=== PATIENT | male | born 1995 | race Caucasian/White ===

== ENCOUNTER 2017-10-24 18:54 | Inpatient (IN) | payer SELFPAY ==
[2017-10-24] MEDS ORDERED: IPRATROPIUM/ALBUTEROL 0.5-2.5 MG/3 ML AMPUL NEB ONE ×2 (19:25→19:26)
[2017-10-24] MEDS ORDERED: NORMAL SALINE 1000 ML 1,000 ML IV ONE (19:25)
[2017-10-24] MEDS ORDERED: MAGNESIUM SULFATE/D5W 1 GM/100 ML RTUPB IV PRN (19:25)
--- NOTE | 2017-10-24 19:30 | ER Document Report ---
ED Respiratory Problem - General Chief Complaint: Shortness Of Breath Stated Complaint: BREATHING DIFFICULTY Time Seen by Provider: 10/24/17 19:18 Notes: Patient is a 22 year old male that comes to the ED for chief complaint of difficulty breathing. He comes by EMS, was given albuterol and Solu-Medrol and route, states he does feel improved since that time. Initial oxygen saturation was 82% on room air, he smokes cigarettes and marijuana, he has a history of asthma, has no meds at home. He denies history of hospitalization or intubation. He states he has been sick for almost 1 week, has had coughing including yellow and green sputum production and felt feverish. He has not had the influenza vaccine. TRAVEL OUTSIDE OF THE [place] IN LAST 30 DAYS: No - Related Data Allergies/Adverse Reactions: No Known Allergies Allergy (Unverified 10/24/17 19:17) Past Medical History - General Information source: Patient - Social History Smoking Status: Current Every Day Smoker Smoking Education Provided: Yes - <3 min Frequency of alcohol use: None Drug Abuse: Marijuana Lives with: Spouse/Significant other Family History: Reviewed & Not Pertinent Patient has suicidal ideation: No Patient has homicidal ideation: No Pulmonary Medical History: Reports: Hx Asthma Renal/ Medical History: Denies: Hx Peritoneal Dialysis Surgical Hx: Negative - Immunizations Hx Diphtheria, Pertussis, Tetanus Vaccination: Yes Review of Systems - Review of Systems Constitutional: See HPI EENT: No symptoms reported Cardiovascular: No symptoms reported Respiratory: See HPI Gastrointestinal: No symptoms reported Genitourinary: No symptoms reported Male Genitourinary: No symptoms reported Musculoskeletal: No symptoms reported Skin: No symptoms reported Hematologic/Lymphatic: No symptoms reported Neurological/Psychological: No symptoms reported Physical Exam - Vital signs Vitals: Pulse Ox 82 L 10/24/17 19:04 Interpretation: Normal - General General appearance: Alert In distress: Mild - HEENT Head: Normocephalic, Atraumatic Eyes: Normal Pupils: PERRL - Respiratory Respiratory status: Respiratory distress - mild, Tachypnea Chest status: Nontender Breath sounds: Decreased air movement, Nonproductive cough, Wheezing. No: Rales , Rhonchi, Stridor Chest palpation: Normal - Cardiovascular Rhythm: Regular, Tachycardia Heart sounds: Normal auscultation, S1 appreciated, S2 appreciated Murmur: No Normal capillary refill: Yes - Abdominal Inspection: Normal Distension: No distension Bowel sounds: Normal Tenderness: Nontender Organomegaly: No organomegaly - Back Back: Normal, Nontender - Extremities General upper extremity: Normal inspection, Nontender, Normal color, Normal ROM , Normal temperature General lower extremity: Normal inspection, Nontender, Normal color, Normal ROM , Normal temperature, Normal weight bearing. No: Melissa's sign - Neurological Neuro grossly intact: Yes Cognition: Normal Orientation: AAOx4 [place] Coma Scale Eye Opening: Spontaneous [place] Coma Scale Verbal: Oriented [place] Coma Scale Motor: Obeys Commands [place] Coma Scale Total: 15 Speech: Normal Motor strength normal: LUE, RUE, LLE, RLE Sensory: Normal - Psychological Associated symptoms: Normal affect, Normal mood - Skin Skin Temperature: Warm Skin Moisture: Dry Skin Color: Normal Course - Re-evaluation Re-evalutation: On my initial evaluation patient has tachypnea, tachycardia, expiratory wheezes , decreased breath sounds, however he can speak in several word sentences without gasping, he is not retracting or in severe distress. Oxygen saturation 91% on 3 L nasal cannula. On reevaluation patient with improvement of lung sounds but his oxygenation has now worsened to 88% on 3 L nasal cannula. Placed on BiPAP. Giving antibiotics due to productive cough. Chest x-ray unremarkable, CBC shows leukocytosis which is nonspecific, influenza negative, remaining workup nonspecific. Venous blood gas unremarkable. On reevaluation patient much improved, oxygenating well, no respiratory distress , states he feels much better. Will discuss with hospitalist for admission to the hospital. - Vital Signs Vital signs: Temp Pulse Resp BP Pulse Ox 97.4 F 84 19 117/60 95 10/25/17 03:48 10/25/17 03:48 10/25/17 03:59 10/25/17 03:48 10/25/17 03:59 - Laboratory Result Diagrams: 10/24/17 19:41 10/24/17 19:41 Laboratory results interpreted by me: 10/24/17 10/24/17 19:41 19:41 WBC 14.0 H RBC 5.65 H Hgb 17.1 H Lymphocytes % 6.5 L Eosinophils % 10.9 H Absolute Neutrophils 10.9 H Absolute Eosinophils 1.5 H BUN 6 L Direct Bilirubin 0.5 H Critical Care Note - Critical Care Note Total time excluding time spent on procedures (mins): 35 - Respiratory distress , asthma exacerbation, hypoxia Comments: Please allow 35 minutes of critical care time for evaluation and management of patient with asthma exacerbation, respiratory distress, hypoxia. Multiple re- evaluations, treatment with DuoNeb's, magnesium, BiPAP. Interpretation of laboratory data. Discussed with family member. Consultation and admission to the hospital. Discharge - Discharge Clinical Impression: Hypoxia, Productive cough, Tobacco abuse Asthma exacerbation Qualifiers: Asthma severity: severe Asthma persistence: unspecified Qualified Code(s): J45.901 - Unspecified asthma with (acute) exacerbation Condition: Stable Disposition: ADMITTED INPATIENT Admitting Provider: Hospitalist Unit Admitted: Telemetry
[2017-10-24 20:08] LABS: VENOUS BLOOD BASE EXCESS -1.3 mmol/L; VENOUS BLOOD HCO3 24.2 mmol/L (20-32); VENOUS BLOOD PCO2 43.2 mmHg (35-63); VENOUS BLOOD PH 7.37 (7.30-7.42)
[2017-10-24 20:11] LABS: ABSOLUTE BASOPHILS # (AUTO) 0.1 10^3/uL (0.0-0.2); ABSOLUTE EOSINOPHILS # (AUTO) 1.5 10^3/uL (0.0-0.6); ABSOLUTE LYMPHOCYTES (AUTO) 0.9 10^3/uL (0.5-4.7); ABSOLUTE MONOCYTES (AUTO) 0.6 10^3/uL (0.1-1.4); ABSOLUTE NEUT (AUTO) 10.9 10^3/uL (1.7-8.2); BASOPHILS % (AUTO) 0.7 % (0-2); EOSINOPHILS % (AUTO) 10.9 % (0-6); HEMOGLOBIN 17.1 g/dL (13.5-17.0); LYMPHOCYTES % (AUTO) 6.5 % (13-45); MEAN CORPUSCULAR HEMOGLOBIN 30.3 pg (27.0-33.4); MEAN CORPUSCULAR HGB CONC 34.3 g/dL (32.0-36.0); MEAN CORPUSCULAR VOLUME 89 fl (80-97); MONOCYTES % (AUTO) 4.5 % (3-13); PLATELET COUNT 234 10^3/uL (150-450); RED BLOOD COUNT 5.65 10^6/uL (4.35-5.55); RED CELL DISTRIBUTION WIDTH 13.8 % (11.5-14.0); SEGMENTED NEUTROPHILS % (AUTO) 77.4 % (42-78); TOTAL CELLS COUNTED % (AUTO) 100 %
[2017-10-24 20:23] LABS: ALANINE AMINOTRANSFERASE 33 U/L (21-72); ALBUMIN 4.3 g/dL (3.5-5.0); ALKALINE PHOSPHATASE 89 U/L (38-126); ANION GAP 17 (5-19); ASPARTATE AMINO TRANSFERASE 20 U/L (17-59); BILIRUBIN,DIRECT 0.5 mg/dL (0.0-0.4); BILIRUBIN,TOTAL 0.7 mg/dL (0.2-1.3); BLOOD UREA NITROGEN 6 mg/dL (7-20); CALCIUM 9.6 mg/dL (8.4-10.2); CARBON DIOXIDE 22 mmol/L (22-30); CHLORIDE 101 mmol/L (98-107); GLUCOSE 92 mg/dL (75-110); POTASSIUM 4.2 mmol/L (3.6-5.0); SODIUM 139.9 mmol/L (137-145)
--- NOTE | 2017-10-24 20:32 | RADIOLOGY REPORT (SQ) ---
EXAM DESCRIPTION: CHEST SINGLE VIEW COMPLETED DATE/TIME: 10/24/2017 8:02 pm REASON FOR STUDY: shortness of breath, hypoxia COMPARISON: None. EXAM PARAMETERS: NUMBER OF VIEWS: One view. TECHNIQUE: Single frontal radiographic view of the chest acquired. RADIATION DOSE: NA LIMITATIONS: None. FINDINGS: LUNGS AND PLEURA: No opacities, masses or pneumothorax. No pleural effusion. MEDIASTINUM AND HILAR STRUCTURES: No masses. Contour normal. HEART AND VASCULAR STRUCTURES: Heart normal in size. Normal vasculature. BONES: No acute findings. HARDWARE: None in the chest. OTHER: No other significant finding. IMPRESSION: NO ACUTE RADIOGRAPHIC FINDING IN THE CHEST. TECHNICAL DOCUMENTATION: JOB ID: [id number] [place]-72 2010 [employer]- All Rights Reserved Reading location - IP/workstation name: [facility]
[2017-10-24 20:45] LABS: A TYPE INFLUENZA AG NEGATIVE (NEGATIVE); B INFLUENZA AG NEGATIVE (NEGATIVE)
[2017-10-24] MEDS ORDERED: CEFTRIAXONE INJ 1000 MG VIAL IV ONE (21:04)
[2017-10-24] MEDS ORDERED: AZITHROMYCIN INJ 500 MG VIAL IV ONE ×2 (21:04→22:30)
[2017-10-24] MEDS ORDERED: PROMETHAZINE HCL INJ 25 MG/1 ML VIAL IV PRN (21:54)
[2017-10-24] MEDS ORDERED: ALBUTEROL SULFATE 0.083% NEB 2.5 MG/3 ML AMPUL NEB PRN (21:54)
[2017-10-24] MEDS ORDERED: ACETAMINOPHEN 325 MG TABLET PO PRN (21:54)
[2017-10-24] MEDS ORDERED: DOCUSATE SODIUM 100 MG CAPSULE PO PRN (21:54)
[2017-10-24] MEDS: METHYLPREDNISOLONE INJ 40 MG/1 ML SDV IV SCH (22:58)
[2017-10-24] MEDS ORDERED: NICOTINE 14 MG/24 HR PATCH.TD24 TD SCH (23:15)
--- NOTE | 2017-10-24 23:23 | PDOC H&P ---
History of Present Illness Admission Date/PCP: 10/24/17 21:47 Patient complains of: Worsening shortness of breath and wheezing for the last 2 days. History of Present Illness: FRANDY HANSEN is a 22 year old male smoker with history of severe asthma was admitted with above-mentioned complaints. The patient denies any fever or chills but complains of cough productive of yellowish/greenish sputum. He denies any sick contacts or recent travels. He apparently uses his rescue inhaler at least twice a day but he has been use it more frequently lately. He ran out of his inhaler about 5-6 days ago. He also used to use Symbicort which he ran out of about a month ago. He was not able to get refills for financial reasons. He said that the humidity exacerbate his symptoms. He is also a smoker, 6 cigarettes a day for the last 3 years. He denied any chest pain but he said that he felt nauseous and vomited once. The vomitus was bilious nonbloody. He denied any urinary symptoms or focal deficits. In the ED, his temperature was 98.4, heart rate 117, respiratory rate 21, blood pressure 122/80 with oxygen saturation of 82% on room air. His WBC was 14.0 and his hemoglobin was 17.1. His pH was 7.37 with PCO2 of 43.2. His influenza screen was negative. Chest x-ray was done which was negative for any acute findings. He received 2 DuoNebs, Rocephin and Zithromax in addition to 1 g of magnesium sulfate 1. Past Medical History Pulmonary Medical History: Reports: Asthma - severe. Past Surgical History Past Surgical History: Reports: None Social History Smoking Status: Current Every Day Smoker Cigarettes Packs Per Day: 6 - Cigarettes a day for the last 3 years Frequency of Alcohol Use: None Hx Recreational Drug Use: Yes - Once a month for the last 2 years. The last time was yesterday Drugs: Marijuana Family History Parental Family History Reviewed: Yes - Father: Heart disease, mother: Heart disease. Children Family History Reviewed: No Sibling(s) Family History Reviewed.: Yes Medication/Allergy Allergies/Adverse Reactions: No Known Allergies Allergy (Unverified 10/24/17 19:17) Review of Systems ROS unobtainable: Other - Pertinent positives and negatives as per HPI. Physical Exam Vital Signs: Temp Pulse Resp BP Pulse Ox 98.4 F 117 H 21 H 122/80 95 10/24/17 19:10 10/24/17 19:10 10/24/17 21:21 10/24/17 20:02 10/24/17 21:21 General appearance: PRESENT: no acute distress, well-developed, well-nourished Head exam: PRESENT: atraumatic, normocephalic Eye exam: PRESENT: conjunctiva pink, PERRLA. ABSENT: scleral icterus Mouth exam: PRESENT: other - the patient is wearing BIPAP mask. Neck exam: PRESENT: full ROM. ABSENT: JVD Respiratory exam: PRESENT: decreased breath sounds. ABSENT: rales, rhonchi, wheezes Cardiovascular exam: PRESENT: RRR - S1 S2 normal.. ABSENT: rubs Pulses: PRESENT: normal dorsalis pedis pul GI/Abdominal exam: PRESENT: normal bowel sounds, soft. ABSENT: distended, rebound, tenderness Rectal exam: PRESENT: deferred Extremities exam: PRESENT: full ROM. ABSENT: pedal edema Neurological exam: PRESENT: alert, awake, oriented to person, oriented to place , oriented to time, oriented to situation Skin exam: PRESENT: dry, intact, warm. ABSENT: cyanosis, rash Results Laboratory Results: CBC: WBC 14.0, hemoglobin 17.1, hematocrit 50.0, MCV 89, RDW 13.8, platelets 234. VBG: PH 7.37, PCO2 43.2. BMP: Sodium 139.9, potassium 4.2, chloride 101, bicarb 22, anion gap 17, BUN 6, creatinine 0.74. Liver enzymes within normal limits. Influenza A and B-. Impressions: Chest X-Ray 10/24/17 19:24 IMPRESSION: NO ACUTE RADIOGRAPHIC FINDING IN THE CHEST. Assessment & Plan - Diagnosis (1) Acute hypoxemic respiratory failure Is this a current diagnosis for this admission?: Yes Plan: Secondary to asthma exacerbation and/or acute bronchitis. Management as detailed below. (2) Asthma exacerbation Qualifiers: Asthma severity: severe Asthma persistence: unspecified Qualified Code(s) : J45.901 - Unspecified asthma with (acute) exacerbation Is this a current diagnosis for this admission?: Yes Plan: CXR reviewed. We will continue scheduled Duoneb treatments, IV Solu-Medrol and Levaquin. BiPAP as needed. We will consult case management to provide a nebulizer machine and further assistance with home medications if possible. I informed the patient and his mother about [facility] pharmacy $4 plan where he will be able to get DuoNeb solution for his nebulizer and prednisone. (3) SIRS (systemic inflammatory response syndrome) Is this a current diagnosis for this admission?: Yes Plan: Given leukocytosis and tachycardia. Management as mentioned above. (4) Smoker Is this a current diagnosis for this admission?: Yes Plan: 6 cigarettes a day for the last 3 years. He seems to be motivated to quit. Nicotine patch. (5) Marijuana use Is this a current diagnosis for this admission?: Yes - Time Time Spent: 50 to 70 Minutes - Inpatient Certification Based on my medical assessment, after consideration of the patient's comorbidities, presenting symptoms, or acuity I expect that the services needed warrant INPATIENT care.: Yes I certify that my determination is in accordance with my understanding of Medicare's requirements for reasonable and necessary INPATIENT services [42 CFR 412.3e].: Yes
[2017-10-24] MEDS ORDERED: NICOTINE 14 MG/24 HR PATCH.TD24 TD ONE (23:45)
[2017-10-25] MEDS ORDERED: INFLUENZA ADLT QUAD (36MOS+) 2017-18 VAC 0.5 ML SYR IM PRN (01:18)
[2017-10-25] MEDS: ZOLPIDEM TARTRATE 5 MG TABLET PO PRN ×2 (01:55→20:55)
[2017-10-25] MEDS: IPRATROPIUM/ALBUTEROL 0.5-2.5 MG/3 ML AMPUL NEB SCH ×6 (02:04→23:59)
[2017-10-25] MEDS: METHYLPREDNISOLONE INJ 40 MG/1 ML SDV IV SCH ×3 (05:07→20:55)
[2017-10-25 07:46] LABS: HEMATOCRIT 50.2 % (37.9-51.0); HEMOGLOBIN 17.3 g/dL (13.5-17.0); MEAN CORPUSCULAR HEMOGLOBIN 30.5 pg (27.0-33.4); MEAN CORPUSCULAR HGB CONC 34.6 g/dL (32.0-36.0); MEAN CORPUSCULAR VOLUME 88 fl (80-97); PLATELET COUNT 241 10^3/uL (150-450); RED BLOOD COUNT 5.68 10^6/uL (4.35-5.55); RED CELL DISTRIBUTION WIDTH 13.5 % (11.5-14.0); WHITE BLOOD COUNT 6.3 10^3/uL (4.0-10.5)
[2017-10-25 07:58] LABS: ANION GAP 18 (5-19); BLOOD UREA NITROGEN 8 mg/dL (7-20); CALCIUM 9.8 mg/dL (8.4-10.2); CARBON DIOXIDE 22 mmol/L (22-30); CHLORIDE 100 mmol/L (98-107); GLUCOSE 139 mg/dL (75-110); POTASSIUM 4.9 mmol/L (3.6-5.0); SODIUM 139.5 mmol/L (137-145)
[2017-10-25] MEDS: LEVOFLOXACIN 500 MG TABLET PO SCH (09:39)
[2017-10-25] MEDS: NICOTINE 14 MG/24 HR PATCH.TD24 TD SCH (09:39)
[2017-10-25] MEDS ORDERED: LEVALBUTEROL HCL NEB 0.63 MG/3 ML AMPUL NEB PRN (13:52)
[2017-10-25] MEDS ORDERED: BUDESONIDE/FORMOTEROL 160-4.5 MCG 60 PUFF/6 GM MDI IH SCH (14:00)
--- NOTE | 2017-10-25 17:38 | PDOC PROGRESS REPORT ---
Subjective Progress Note for:: 10/25/17 Reason For Visit: ASTHMA EXACERBATION Physical Exam Vital Signs: Temp Pulse Resp BP Pulse Ox 97.5 F 113 H 18 141/74 H 95 10/25/17 15:45 10/25/17 15:45 10/25/17 15:45 10/25/17 15:45 10/25/17 15:45 Intake & Output 10/24/17 10/25/17 10/26/17 06:59 06:59 06:59 Intake Total 347 853 Output Total 350 Balance -3 853 Weight 96.5 kg General appearance: PRESENT: no acute distress Head exam: PRESENT: atraumatic Eye exam: PRESENT: conjunctiva pink Mouth exam: PRESENT: moist Neck exam: PRESENT: full ROM Respiratory exam: PRESENT: symmetrical, unlabored, wheezes Cardiovascular exam: PRESENT: RRR, +S1, +S2 Pulses: PRESENT: normal radial pulses, +1 pedal pulses bilateral Vascular exam: PRESENT: normal capillary refill GI/Abdominal exam: PRESENT: normal bowel sounds Rectal exam: PRESENT: deferred Extremities exam: PRESENT: full ROM Musculoskeletal exam: PRESENT: full ROM Neurological exam: PRESENT: alert, awake, oriented to person, oriented to place , oriented to time, oriented to situation Psychiatric exam: PRESENT: appropriate affect Results Laboratory Results: 10/25/17 06:55 10/25/17 06:55 10/25/17 10/25/17 06:55 06:55 WBC 6.3 RBC 5.68 H Hgb 17.3 H Hct 50.2 MCV 88 MCH 30.5 MCHC 34.6 RDW 13.5 Plt Count 241 Sodium 139.5 Potassium 4.9 Chloride 100 Carbon Dioxide 22 Anion Gap 18 BUN 8 Creatinine 0.65 Est GFR ( Amer) > 60 Est GFR (Non-Af Amer) > 60 Glucose 139 H Calcium 9.8 Impressions: Chest X-Ray 10/24/17 19:24 IMPRESSION: NO ACUTE RADIOGRAPHIC FINDING IN THE CHEST. Assessment & Plan - Diagnosis (1) Acute hypoxemic respiratory failure Is this a current diagnosis for this admission?: Yes Plan: Secondary to asthma exacerbation and/or acute bronchitis. Management detailed below (2) Asthma exacerbation Qualifiers: Asthma severity: severe Asthma persistence: unspecified Qualified Code(s) : J45.901 - Unspecified asthma with (acute) exacerbation Is this a current diagnosis for this admission?: Yes Plan: Asthma exacerbation due to patient not taking his medication. States he ran out of his medication and does not have health insurance. The patient was complaining of shortness of breath earlier this afternoon, wheezing heard in bilateral bases. This was just before the patient's scheduled DuoNeb treatment , will continue scheduled DuoNeb treatments but increase the frequency. Continue scheduled IV Solu-Medrol. Continue Levaquin for possible bronchitis, if patient appears non-toxic, consider d/c antibiotics on day 3. Added as needed Xopenex nebs. While in the ED the patient required BIPAP because his Sp02 dropped to 88%. He has tolerated being off BIPAP today and only requires nasal cannula. Use BIPAP as needed, low threshold for putting patient back on if he gets fatigued or short of breath. (3) Smoker Is this a current diagnosis for this admission?: Yes Plan: Patient smokes half a pack a day for the last 3 years. Smoking cessation encouraged. Nicotine patch provided (4) Leukocytosis Qualifiers: Leukocytosis type: unspecified Qualified Code(s): D72.829 - Elevated white blood cell count, unspecified Is this a current diagnosis for this admission?: Yes Plan: Resolved. Patient has remained afebrile. (5) Tachycardia Is this a current diagnosis for this admission?: Yes Plan: Sinus tachycardia (120s) while at rest. Unclear etiology - this could be related to frequent scheduled DuoNebs. Xopenex encouraged as it does not have as much of a stimulant effect. The patient has remained afebrile, so I do not believe this is a response to infection. The patient also denies any pain. The patient's blood pressure has remained stable despite his tachycardia. - Time Time Spent with patient: 15-24 minutes Medications reviewed and adjusted accordingly: Yes Anticipated discharge: Home Within: within 72 hours - Inpatient Certification Based on my medical assessment, after consideration of the patient's comorbidities, presenting symptoms, or acuity I expect that the services needed warrant INPATIENT care.: Yes I certify that my determination is in accordance with my understanding of Medicare's requirements for reasonable and necessary INPATIENT services [42 CFR 412.3e].: Yes Medical Necessity: Risk of Complication if Not Cared For in Hospital - Plan Summary Plan Summary: Discharge home
[2017-10-26] MEDS: IPRATROPIUM/ALBUTEROL 0.5-2.5 MG/3 ML AMPUL NEB SCH ×5 (04:29→20:59)
[2017-10-26] MEDS: METHYLPREDNISOLONE INJ 40 MG/1 ML SDV IV SCH (05:16)
[2017-10-26 08:23] LABS: HEMATOCRIT 47.7 % (37.9-51.0); HEMOGLOBIN 16.4 g/dL (13.5-17.0); MEAN CORPUSCULAR HEMOGLOBIN 30.6 pg (27.0-33.4); MEAN CORPUSCULAR HGB CONC 34.3 g/dL (32.0-36.0); MEAN CORPUSCULAR VOLUME 89 fl (80-97); PLATELET COUNT 242 10^3/uL (150-450); RED BLOOD COUNT 5.36 10^6/uL (4.35-5.55); RED CELL DISTRIBUTION WIDTH 13.9 % (11.5-14.0)
[2017-10-26 08:35] LABS: ANION GAP 15 (5-19); BLOOD UREA NITROGEN 14 mg/dL (7-20); CALCIUM 10.2 mg/dL (8.4-10.2); CARBON DIOXIDE 24 mmol/L (22-30); CHLORIDE 104 mmol/L (98-107); GLUCOSE 135 mg/dL (75-110); PHOSPHORUS 3.6 mg/dL (2.5-4.5); POTASSIUM 4.7 mmol/L (3.6-5.0); SODIUM 142.9 mmol/L (137-145)
[2017-10-26 08:48] LABS: ABSOLUTE LYMPHOCYTES# (MANUAL) 0.7 10^3/uL (0.5-4.7); ABSOLUTE MONOCYTES # (MANUAL) 0.6 10^3/uL (0.1-1.4); ABSOLUTE NEUTROPHILS# (MANUAL) 13.5 10^3/uL (1.7-8.2); BASOPHILS % (MANUAL) 0 % (0-2); EOSINOPHILS % (MANUAL) 0 % (0-6); LYMPHOCYTES % (MANUAL) 5 % (13-45); MONOCYTES % (MANUAL) 4 % (3-13); SEGMENTED NEUTROPHILS % (MAN) 91 % (42-78); TOTAL CELLS COUNTED 100
[2017-10-26 08:50] LABS: PLATELET COMMENT ADEQUATE; RBC MORPHOLOGY COMMENT NORMO-CYTIC/CHROMIC; TOXIC GRANULATION SLIGHT
[2017-10-26 08:51] LABS: WHITE BLOOD COUNT 14.8 10^3/uL (4.0-10.5)
[2017-10-26] MEDS: LEVOFLOXACIN 500 MG TABLET PO SCH (09:26)
[2017-10-26] MEDS: METHYLPREDNISOLONE INJ 125 MG/2 ML SDV IV SCH ×2 (09:26→17:29)
[2017-10-26] MEDS: NICOTINE 14 MG/24 HR PATCH.TD24 TD SCH (09:26)
[2017-10-26] MEDS ORDERED: LEVALBUTEROL HCL NEB 0.63 MG/3 ML AMPUL NEB PRN (14:30)
[2017-10-26] MEDS ORDERED: ACETAMINOPHEN 325 MG TABLET PO PRN (14:30)
[2017-10-26] MEDS ORDERED: PROMETHAZINE HCL INJ 25 MG/1 ML VIAL IV PRN (14:30)
--- NOTE | 2017-10-26 17:47 | PDOC PROGRESS REPORT ---
Subjective Progress Note for:: 10/26/17 Subjective:: FRANDY HANSEN IS A 22 YEAR OLD MALE admitted for shortness of breath and wheezing 48 hours. Patient has a history of severe asthma and is a smoker. He complained of a productive cough with yellowish/greenish sputum. He reports using a rescue inhaler at least twice a day but lately has been using it more frequently. He ran out of his inhaler 5-6 days prior to arrival, also ran out of his Symbicort 1 month ago. The patient was not able to get refills as he does not have insurance and cannot afford to pay out of pocket. In the emergency department the patient had to be placed on BiPAP for acute hypoxia, Sp02 88%. The patient was seen on morning rounds. He is awake, alert, oriented, and participatory in care. He states that he feels much better today and denies shortness of breath. The patient has now been off BiPAP for approximately 24 hours, and is maintaining an SPO2 >92% on nasal cannula. Additionally, his wheezing has significantly decreased today, will begin weaning his steroids. Will need to discuss his case with discharge planning in order to arrange for the patient to be able to get his asthma medications. He will also need a nebulizer. Reason For Visit: ASTHMA EXACERBATION Physical Exam Vital Signs: Temp Pulse Resp BP Pulse Ox 97.6 F 99 16 137/73 H 98 10/26/17 08:29 10/26/17 08:29 10/26/17 08:29 10/26/17 08:29 10/26/17 08:29 Intake & Output 10/25/17 10/26/17 10/27/17 06:59 06:59 06:59 Intake Total 347 2226 Output Total 350 Balance -3 2226 Weight 96.5 kg 98.9 kg General appearance: PRESENT: no acute distress Head exam: PRESENT: atraumatic Eye exam: PRESENT: conjunctiva pink Mouth exam: PRESENT: moist Neck exam: PRESENT: full ROM Respiratory exam: PRESENT: clear to auscultation lexy, wheezes - VERY SLIGHT WHEEZE hear in the LLL Cardiovascular exam: PRESENT: +S1, +S2, tachycardia - NSR when asleep. 110-125 when awake Pulses: PRESENT: normal radial pulses GI/Abdominal exam: PRESENT: normal bowel sounds, soft Rectal exam: PRESENT: deferred Extremities exam: PRESENT: full ROM Musculoskeletal exam: PRESENT: ambulatory, full ROM Neurological exam: PRESENT: alert, awake, oriented to person, oriented to place , oriented to time, oriented to situation Psychiatric exam: PRESENT: appropriate affect Results Laboratory Results: 10/26/17 08:07 10/26/17 08:07 10/26/17 10/26/17 08:07 08:07 WBC 14.8 H D RBC 5.36 Hgb 16.4 Hct 47.7 MCV 89 MCH 30.6 MCHC 34.3 RDW 13.9 Plt Count 242 Seg Neutrophils % Not Reportable Lymphocytes % Not Reportable Monocytes % Not Reportable Eosinophils % Not Reportable Basophils % Not Reportable Absolute Neutrophils Not Reportable Absolute Lymphocytes Not Reportable Absolute Monocytes Not Reportable Absolute Eosinophils Not Reportable Absolute Basophils Not Reportable Sodium 142.9 Potassium 4.7 Chloride 104 Carbon Dioxide 24 Anion Gap 15 BUN 14 Creatinine 0.71 Est GFR ( Amer) > 60 Est GFR (Non-Af Amer) > 60 Glucose 135 H Calcium 10.2 Phosphorus 3.6 Magnesium 2.2 Impressions: Chest X-Ray 10/24/17 19:24 IMPRESSION: NO ACUTE RADIOGRAPHIC FINDING IN THE CHEST. Assessment & Plan - Diagnosis (1) Acute hypoxemic respiratory failure Is this a current diagnosis for this admission?: Yes Plan: Secondary to asthma exacerbation and/or acute bronchitis. Management detailed below (2) Asthma exacerbation Qualifiers: Asthma severity: severe Asthma persistence: unspecified Qualified Code(s) : J45.901 - Unspecified asthma with (acute) exacerbation Is this a current diagnosis for this admission?: Yes Plan: Asthma exacerbation due to patient not taking his medication. States he ran out of his medication and does not have health insurance. While in the ED the patient required BIPAP because his Sp02 dropped to 88%. He has tolerated being off BIPAP today and only requires nasal cannula. Wheezing has greatly improved today, very slight wheeze heard in the left lower lobe. Continue scheduled DuoNeb treatments Q4hr. Start weaning scheduled IV Solu -Medrol. Continue Levaquin for possible bronchitis, if patient appears non-toxic , consider d/c antibiotics on day 3. Added as needed Xopenex nebs. (3) Smoker Is this a current diagnosis for this admission?: Yes Plan: Patient smokes half a pack a day for the last 3 years. Smoking cessation encouraged. Nicotine patch provided (4) Leukocytosis Qualifiers: Leukocytosis type: unspecified Qualified Code(s): D72.829 - Elevated white blood cell count, unspecified Is this a current diagnosis for this admission?: Yes Plan: WBC 14.8. Patient has remains afebrile. IV steroids and URI likely are the culprits. Continue antibiotics for suspected bronchitis. Patient appears non- toxic. (5) Tachycardia Is this a current diagnosis for this admission?: Yes Plan: Sinus tachycardia (110-120) while awake. Unclear etiology - this could be related to frequent scheduled DuoNebs. Xopenex encouraged as it does not have as much of a stimulant effect. The patient has remained afebrile, so I do not believe this is a response to infection. The patient also denies any pain. The patient's blood pressure has remained stable despite his tachycardia. (6) Insurance coverage problems Is this a current diagnosis for this admission?: Yes Plan: This patient does not have health insurance and cannot afford to pay out of pocket for his asthma medications. Unclear if he qualified for Medicaid. Case Management is aware of his situation. Attempting to get inhaler and nebulizer, clear if we will be able to get Symbicort because it is so expensive.
[2017-10-26] MEDS: BUDESONIDE/FORMOTEROL 160-4.5 MCG 60 PUFF/6 GM MDI IH SCH (21:04)
[2017-10-26] MEDS: ZOLPIDEM TARTRATE 5 MG TABLET PO PRN (21:04)
[2017-10-27] MEDS: IPRATROPIUM/ALBUTEROL 0.5-2.5 MG/3 ML AMPUL NEB SCH ×7 (00:02→23:49)
[2017-10-27] MEDS: METHYLPREDNISOLONE INJ 125 MG/2 ML SDV IV SCH ×2 (02:02→10:15)
[2017-10-27] MEDS: NICOTINE 14 MG/24 HR PATCH.TD24 TD SCH (10:15)
[2017-10-27] MEDS: LEVOFLOXACIN 500 MG TABLET PO SCH (10:15)
[2017-10-27] MEDS: BUDESONIDE/FORMOTEROL 160-4.5 MCG 60 PUFF/6 GM MDI IH SCH ×2 (10:15→21:34)
--- NOTE | 2017-10-27 14:50 | PDOC PROGRESS REPORT ---
Subjective Progress Note for:: 10/27/17 Subjective:: The patient is a 22-year-old male who was admitted to the hospital with an asthma exacerbation. He frequently he recently moved to this area from [place] of state and currently has no insurance coverage. He ran out of his Symbicort approximately 1 month ago and then ran out of his rescue inhaler approximately 5-6 days prior to admission. In the emergency room the patient was found to be quite borderline hypoxic with an O2 saturation of 88%. Patient was admitted to the hospital. He was initially maintained on BiPAP but is since been transitioned to a nasal cannula. Unfortunately he is still requiring oxygen today. The discharge planners have gotten involved to see about getting the patient his asthma medications as well as a nebulizer at home. Attempts are being made to get him set up at the [facility] but he needs a denial letter from Medicaid first according to the patient's mother. Today the patient is still requiring oxygen. He reports no fever chills overnight. No chest pain or heart palpitations that he is aware of. He continues to have wheezing and cough with bronchospasm. No nausea, vomiting or diarrhea. He is tolerating his diet. No dysuria, frequency or hematuria. Reason For Visit: ASTHMA EXACERBATION Physical Exam Vital Signs: Temp Pulse Resp BP Pulse Ox 97.9 F 75 18 145/69 H 99 10/27/17 12:05 10/27/17 12:05 10/27/17 12:05 10/27/17 12:05 10/27/17 12:05 Intake & Output 10/26/17 10/27/17 10/28/17 06:59 06:59 06:59 Intake Total 2226 1708 Balance 2226 1708 Weight 98.9 kg 100.5 kg General appearance: PRESENT: no acute distress, well-developed, well-nourished, other - He is receiving oxygen via nasal cannula Head exam: PRESENT: atraumatic, normocephalic Mouth exam: PRESENT: moist, tongue midline Neck exam: ABSENT: carotid bruit, JVD, lymphadenopathy, thyromegaly Respiratory exam: PRESENT: wheezes, other - He has scattered coarse breath sounds with wheezing throughout all lung callahan. Cardiovascular exam: PRESENT: RRR. ABSENT: diastolic murmur, rubs, systolic murmur GI/Abdominal exam: PRESENT: normal bowel sounds, soft. ABSENT: distended, guarding, mass, organolmegaly, rebound, tenderness Rectal exam: PRESENT: deferred Extremities exam: PRESENT: full ROM. ABSENT: calf tenderness, clubbing, pedal edema Neurological exam: PRESENT: alert, awake, oriented to person, oriented to place , oriented to time, oriented to situation, CN II-XII grossly intact. ABSENT: motor sensory deficit Psychiatric exam: PRESENT: appropriate affect, normal mood. ABSENT: homicidal ideation, suicidal ideation Skin exam: PRESENT: dry, intact, warm. ABSENT: cyanosis, rash Results Laboratory Results: 10/26/17 08:07 10/26/17 08:07 Impressions: Chest X-Ray 10/24/17 19:24 IMPRESSION: NO ACUTE RADIOGRAPHIC FINDING IN THE CHEST. Assessment & Plan - Diagnosis (1) Acute hypoxemic respiratory failure Is this a current diagnosis for this admission?: Yes Plan: The patient is still requiring oxygen. He has been weaned off of BiPAP at this point. His hypoxic respiratory failure is due to his asthma exacerbation. (2) Asthma exacerbation Qualifiers: Asthma severity: severe Asthma persistence: unspecified Qualified Code(s) : J45.901 - Unspecified asthma with (acute) exacerbation Is this a current diagnosis for this admission?: Yes Plan: The patient still has coarse wheezing and bronchospasm. He has been receiving 60 mg of Solu-Medrol every 8 hours. I am going to cut this back to 40 mg every 12 hours today. We will continue to try to wean him off of oxygen. He will continue Symbicort. He states that he also took Singulair before and I am going to start him on that as well. He will continue Xopenex for breathing treatments. (3) Sinus tachycardia Is this a current diagnosis for this admission?: Yes Plan: He has had heart rates today in the 130s. This is likely due to steroids which will be decreased today. He is on Xopenex for breathing treatments. Unfortunately we cannot give him any beta-blockers due to his asthma exacerbation. We will keep him on a remote monitor. (4) Tobacco abuse Is this a current diagnosis for this admission?: Yes Plan: Certainly in light of his respiratory issues he should not be smoking. (5) Leukocytosis Qualifiers: Leukocytosis type: unspecified Qualified Code(s): D72.829 - Elevated white blood cell count, unspecified Is this a current diagnosis for this admission?: Yes Plan: Likely secondary to steroids. He is on p.o. Levaquin as well. (6) Insurance coverage problems Is this a current diagnosis for this admission?: Yes Plan: The discharge planners are involved. He will need medication assistance as well as a nebulizer at home when he goes home. Hopefully we can help get him into the [facility] possibly before he gets denied from Medicaid. - Time Time Spent with patient: 25-34 minutes - Inpatient Certification Medical Necessity: Other - Inpatient hospitalization remains necessary. The patient is still requiring oxygen support. He is requiring parenteral steroids. Timing of disposition will be determined by his clinical course.
[2017-10-27] MEDS: ZOLPIDEM TARTRATE 5 MG TABLET PO PRN (21:34)
[2017-10-27] MEDS: MONTELUKAST SODIUM 10 MG TABLET PO SCH (21:34)
[2017-10-27] MEDS ORDERED: METHYLPREDNISOLONE INJ 125 MG/2 ML SDV IV SCH (22:00)
[2017-10-28] MEDS: IPRATROPIUM/ALBUTEROL 0.5-2.5 MG/3 ML AMPUL NEB SCH ×2 (04:27→08:27)
[2017-10-28] MEDS: LEVOFLOXACIN 500 MG TABLET PO SCH (10:45)
[2017-10-28] MEDS: BUDESONIDE/FORMOTEROL 160-4.5 MCG 60 PUFF/6 GM MDI IH SCH ×2 (10:45→22:32)
[2017-10-28] MEDS: NICOTINE 14 MG/24 HR PATCH.TD24 TD SCH (10:46)
--- NOTE | 2017-10-28 13:58 | PDOC PROGRESS REPORT ---
Subjective Progress Note for:: 10/28/17 Subjective:: The patient is a 22 year old patient with a past medical history of asthma and continuous tobacco use who was admitted on 10/24/17 for an asthma exacerbation. The patient was seen on morning rounds. He is found resting in bed comfortably on supplemental oxygen at 2 lpm. The oxygen was turned off during the visit; the patient was able to maintain his oxygen saturations without increased shortness of breath. He states that he is feeling well at present. He does complain of a slightly productive cough, however this is improved from admission. We discussed the importance of smoking cessation. His primary concern today is financial barriers with regard to affording medications or establishing with a primary care provider. Reason For Visit: ASTHMA EXACERBATION Physical Exam Vital Signs: Temp Pulse Resp BP Pulse Ox 98.2 F 116 H 16 125/63 97 10/28/17 12:00 10/28/17 12:00 10/28/17 12:00 10/28/17 12:00 10/28/17 12:00 Intake & Output 10/27/17 10/28/17 10/29/17 06:59 06:59 06:59 Intake Total 1708 1940 Balance 1708 1940 Weight 100.5 kg 100.3 kg General appearance: PRESENT: no acute distress, well-developed, well-nourished Head exam: PRESENT: atraumatic, normocephalic Eye exam: PRESENT: conjunctiva pink, EOMI, PERRLA. ABSENT: scleral icterus Ear exam: PRESENT: normal external ear exam Mouth exam: PRESENT: moist, tongue midline Neck exam: ABSENT: carotid bruit, JVD, lymphadenopathy, thyromegaly Respiratory exam: PRESENT: symmetrical, unlabored, wheezes - Slight end expiratory wheeze LLL. ABSENT: rales, rhonchi Cardiovascular exam: PRESENT: RRR, +S1, +S2, tachycardia - 110s. ABSENT: diastolic murmur, rubs, systolic murmur Pulses: PRESENT: normal dorsalis pedis pul Vascular exam: PRESENT: normal capillary refill GI/Abdominal exam: PRESENT: normal bowel sounds, soft. ABSENT: distended, guarding, mass, organolmegaly, rebound, tenderness Rectal exam: PRESENT: deferred Extremities exam: PRESENT: full ROM. ABSENT: calf tenderness, clubbing, pedal edema Neurological exam: PRESENT: alert, awake, oriented to person, oriented to place , oriented to time, oriented to situation, CN II-XII grossly intact. ABSENT: motor sensory deficit Psychiatric exam: PRESENT: appropriate affect, normal mood. ABSENT: homicidal ideation, suicidal ideation Skin exam: PRESENT: dry, intact, warm. ABSENT: cyanosis, rash Results Laboratory Results: 10/26/17 08:07 10/26/17 08:07 Impressions: Chest X-Ray 10/24/17 19:24 IMPRESSION: NO ACUTE RADIOGRAPHIC FINDING IN THE CHEST. Assessment & Plan - Diagnosis (1) Acute hypoxemic respiratory failure Is this a current diagnosis for this admission?: Yes Plan: Resolved. The patient has been successfully weaned to room air. (2) Asthma exacerbation Qualifiers: Asthma severity: severe Asthma persistence: unspecified Qualified Code(s) : J45.901 - Unspecified asthma with (acute) exacerbation Is this a current diagnosis for this admission?: Yes Plan: Improved; the patient has successfully been weaned to room air. He is no longer dyspneic at rest. Slight end expiratory wheezing noted to the left lower lobe. No rhonchi. We will transition to p.o. prednisone today. Continue as needed nebulizer treatments. Continue home medications: Symbicort and Singulair. (3) Leukocytosis Qualifiers: Leukocytosis type: unspecified Qualified Code(s): D72.829 - Elevated white blood cell count, unspecified Is this a current diagnosis for this admission?: Yes Plan: Secondary to steroids. We will continue to monitor. (4) SIRS (systemic inflammatory response syndrome) Is this a current diagnosis for this admission?: Yes Plan: Clinically improving; pt does not appear to be acutely ill. Blood cultures are negative at 72 hours. Influenza A/B negative. Given leukocytosis and tachycardia, pt was empirically placed on Levaquin. Currently on day 3/7. (5) Sinus tachycardia Is this a current diagnosis for this admission?: Yes Plan: Improved. Secondary to steroids, nebulizer treatments, and asthma exacerbation. Pt is on continuous cardiac telemetry. (6) Tobacco abuse Plan: Smoking cessation is strongly encouraged. Nicotine replacement therapy is provided. (7) Insurance coverage problems Is this a current diagnosis for this admission?: Yes Plan: Will ask the discharge planners to assist with establishing with a PCP and obtaining medication assistance if available/eligible. - Time Time Spent with patient: 25-34 minutes Smoking Cessation Education: over 10 minutes Medications reviewed and adjusted accordingly: Yes Anticipated discharge: Home Within: within 24 hours - if tolerates transition to p.o steroids.
[2017-10-28] MEDS: PREDNISONE 20 MG TABLET PO SCH (18:19)
[2017-10-28] MEDS: MONTELUKAST SODIUM 10 MG TABLET PO SCH (22:32)
[2017-10-28] MEDS: ZOLPIDEM TARTRATE 5 MG TABLET PO PRN (22:32)
[2017-10-29 07:21] LABS: HEMATOCRIT 49.4 % (37.9-51.0); HEMOGLOBIN 16.9 g/dL (13.5-17.0); MEAN CORPUSCULAR HEMOGLOBIN 30.7 pg (27.0-33.4); MEAN CORPUSCULAR HGB CONC 34.2 g/dL (32.0-36.0); MEAN CORPUSCULAR VOLUME 90 fl (80-97); PLATELET COUNT 269 10^3/uL (150-450); RED CELL DISTRIBUTION WIDTH 13.6 % (11.5-14.0); WHITE BLOOD COUNT 8.7 10^3/uL (4.0-10.5)
[2017-10-29 08:01] VITALS: BP 118/74
[2017-10-29] MEDS: BUDESONIDE/FORMOTEROL 160-4.5 MCG 60 PUFF/6 GM MDI IH SCH (09:09)
[2017-10-29] MEDS: PREDNISONE 20 MG TABLET PO SCH (09:09)
[2017-10-29] MEDS: LEVOFLOXACIN 500 MG TABLET PO SCH (09:09)
[2017-10-29] MEDS: NICOTINE 14 MG/24 HR PATCH.TD24 TD SCH (09:09)
--- NOTE | 2017-10-29 15:10 | PDOC DISCHARGE SUMMARY ---
General - Admit/Disc Date/PCP Admission Date/Primary Care Provider: 10/24/17 21:47 Discharge Date: 10/29/17 - Discharge Diagnosis (1) Acute hypoxemic respiratory failure Is this a current diagnosis for this admission?: Yes (2) Asthma exacerbation Is this a current diagnosis for this admission?: Yes (3) Leukocytosis Is this a current diagnosis for this admission?: Yes (4) SIRS (systemic inflammatory response syndrome) Is this a current diagnosis for this admission?: Yes (5) Sinus tachycardia Is this a current diagnosis for this admission?: Yes (7) Insurance coverage problems Is this a current diagnosis for this admission?: Yes - Additional Information Resuscitation Status: Full Code Discharge Diet: Regular Discharge Activity: Activity As Tolerated Prescriptions: Albuterol Sulfate [Albuterol Sulfate 2.5mg/3 mL] 1 vial IH TIDP PRN #90 vial.neb PRN Reason: SOB,WHEEZING Albuterol Sulfate [Proair HFA Inhalation Aerosol 8.5 gm MDI] 2 puff IH Q4HP PRN #1 hfa.aer.ad PRN Reason: SOB,WHEEZING Budesonide/Formoterol Fumarate [Symbicort 160-4.5 Mcg Inhaler] 2 puff IH Q12 #1 hfa.aer.ad Montelukast Sodium [Singulair 10 mg Tablet] 10 mg PO QHS #30 tablet Nicotine [Nicoderm 14 mg/24 Hr Transdermal Patch] 1 each TD DAILY #14 patch.td24 Prednisone [Deltasone 20 mg Tablet] 20 mg PO ASDIR PRN #20 tablet PRN Reason: Home Medications: Acetaminophen [Tylenol 325 mg Tablet] 650 mg PO Q4HP PRN tablet 10/29/17 Albuterol Sulfate [Albuterol Sulfate 2.5mg/3 mL] 1 vial IH TIDP PRN #90 vial.neb 10/29/17 Albuterol Sulfate [Proair HFA Inhalation Aerosol 8.5 gm MDI] 2 puff IH Q4HP PRN #1 hfa.aer.ad 10/29/17 Budesonide/Formoterol Fumarate [Symbicort 160-4.5 Mcg Inhaler] 2 puff IH Q12 #1 hfa.aer.ad 10/29/17 Budesonide/Formoterol Fumarate [Symbicort HFA 160-4.5 mcg Inhaler 6 gm] 2 puff IH Q12 #0 inhaler 10/29/17 Montelukast Sodium [Singulair 10 mg Tablet] 10 mg PO QHS #30 tablet 10/29/17 Nicotine [Nicoderm 14 mg/24 Hr Transdermal Patch] 1 each TD DAILY #14 patch.td24 10/29/17 Prednisone [Deltasone 20 mg Tablet] 20 mg PO ASDIR PRN #20 tablet 10/29/17 History of Present Illness History of Present Illness: Per H&P by Dr. Delcid: FRANDY HANSEN is a 22 year old male smoker with a history of severe asthma was admitted with above mentioned complaints. The patient denies any fever or chills but complains of cough productive of yellow/ greenish sputum. He denies any sick contacts or recent travels. He apparently uses his rescue inhaler at least twice a day but he has been using it more frequently lately. He ran out of his inhaler about 5-6 days ago. He also used to use Symbicort which he ran out of about a month ago. He was unable to get refills for financial reasons. He states that the humidity exacerbates his symptoms. He is also a smoker, 6 cigarettes a day for the last 3 years. He denies any chest pain but said that he felt nauseous and vomited once. The vomitus was bilious nonbloody. Night any urinary symptoms or focal deficits. In the ED, his temperature was 98.4, heart rate 117, respiratory rate 21, blood pressure 122/80 with oxygen saturations of 82% on room air. His WBC was 14.0 and his hemoglobin is 17.1. His pH was 7.37 with PCO2 of 43.2. His influenza screening was negative. Chest x-ray was done which was negative for any acute findings. He received 2 DuoNeb's, Rocephin and Zithromax, in addition to 1 g of magnesium sulfate 1. Hospital Course Hospital Course: The patient was admitted to the floor on continuous cardiac telemetry. He was placed on scheduled duo nebs xopenex as needed, IV Solu-Medrol and Levaquin for coverage of a possible community-acquired pneumonia secondary to his elevated white blood cell count and productive cough. Smoking cessation was encouraged and he was provided nicotine replacement therapy. The patient was briefly on BiPAP but easily transitioned to supplemental oxygen via nasal cannula. The patient progressed to room air and maintained oxygen saturations while sleeping and while ambulatory. He was transitioned to p.o. prednisone and Levaquin and observed for an additional 24 hours. He did not experience any worsening symptoms and actually felt much better the following day. Discharge planning was consulted to assist with providing resources to the patient. The patient and family members were provided information on how to obtain a low cost nebulizer machine, apply for medication assistance through pharmaceutical companies, and establishing with a primary care provider. At time of discharge, the patient is stable condition and maintaining oxygen saturations while ambulatory on room air. The patient is discharged with prescriptions for Symbicort, Singulair, NicoDerm, prednisone taper, albuterol HFA and albuterol nebulizer solution. He has been provided a referral and an appointment has been scheduled with the [facility] for follow-up care. Physical Exam Vital Signs: Temp Pulse Resp BP Pulse Ox 97.3 F 78 16 118/74 96 10/29/17 09:40 10/29/17 09:40 10/29/17 09:40 10/29/17 09:40 10/29/17 09:40 Intake & Output 10/28/17 10/29/17 10/30/17 06:59 06:59 06:59 Intake Total 1940 2685 Balance 1940 2685 Weight 100.3 kg General appearance: PRESENT: no acute distress, well-developed, well-nourished Head exam: PRESENT: atraumatic, normocephalic Eye exam: PRESENT: conjunctiva pink, EOMI, PERRLA. ABSENT: scleral icterus Ear exam: PRESENT: normal external ear exam Mouth exam: PRESENT: moist, tongue midline Neck exam: ABSENT: carotid bruit, JVD, lymphadenopathy, thyromegaly Respiratory exam: PRESENT: clear to auscultation lexy, symmetrical, unlabored. ABSENT: rales, rhonchi, wheezes Cardiovascular exam: PRESENT: RRR, +S1, +S2. ABSENT: diastolic murmur, rubs, systolic murmur, tachycardia Pulses: PRESENT: normal dorsalis pedis pul Vascular exam: PRESENT: normal capillary refill GI/Abdominal exam: PRESENT: normal bowel sounds, soft. ABSENT: distended, guarding, mass, organolmegaly, rebound, tenderness Rectal exam: PRESENT: deferred Extremities exam: PRESENT: full ROM. ABSENT: calf tenderness, clubbing, pedal edema Neurological exam: PRESENT: alert, awake, oriented to person, oriented to place , oriented to time, oriented to situation, CN II-XII grossly intact. ABSENT: motor sensory deficit Psychiatric exam: PRESENT: appropriate affect, normal mood. ABSENT: homicidal ideation, suicidal ideation Skin exam: PRESENT: dry, intact, warm. ABSENT: cyanosis, rash Results Laboratory Results: 10/29/17 06:10 10/26/17 08:07 10/29/17 06:10 WBC 8.7 RBC 5.50 Hgb 16.9 Hct 49.4 MCV 90 MCH 30.7 MCHC 34.2 RDW 13.6 Plt Count 269 Impressions: Chest X-Ray 10/24/17 19:24 IMPRESSION: NO ACUTE RADIOGRAPHIC FINDING IN THE CHEST. Qualifiers - * PATEINT BEING DISCHARGED WITH ANY OF THE FOLLOWING DIAGNOSIS?: No
== END 2017-10-29 11:23 | disposition home or self-care (01) | DRG 189 ==
LOC: ER 18:54 → EH 21:47 → 5 10-25 00:34
PROVIDERS: ADMIT Internal Medicine Geriatric Medicine; ATTEND Internal Medicine Geriatric Medicine
PROC: 3E0234Z Introduction of Serum, Toxoid and Vaccine into Muscle, Percutaneous Approach (ICD-10-PCS; principal; 2017-10-29)
DX: J96.01 Acute respiratory failure with hypoxia (principal); R65.11 Systemic inflammatory response syndrome (SIRS) of non-infectious origin with acute organ dysfunction; J45.901 Unspecified asthma with (acute) exacerbation; D72.829 Elevated white blood cell count, unspecified; R00.0 Tachycardia, unspecified; F17.210 Nicotine dependence, cigarettes, uncomplicated; F12.90 Cannabis use, unspecified, uncomplicated; Z23 Encounter for immunization; Z71.6 Tobacco abuse counseling; Z59.8 Other problems related to housing and economic circumstances
CPT/HCPCS: 36415; 71045; 80048; 80053; 82803; 83735; 84100; 85025; 85027; 87040; 87804; 90686; 94640; 94660; 96365; 99291; J0456; J0696; J2920; J2930; J3475; J3490; J7030; J7512; J7620

== ENCOUNTER 2018-02-12 08:12 | Inpatient (IN) | payer SELFPAY ==
[2018-02-12] MEDS ORDERED: METHYLPREDNISOLONE INJ 125 MG/2 ML SDV IV ONE (08:23)
[2018-02-12] MEDS ORDERED: IPRATROPIUM/ALBUTEROL 0.5-2.5 MG/3 ML AMPUL NEB ONE (08:23)
--- NOTE | 2018-02-12 08:23 | ER Document Report ---
ED Respiratory Problem - General Chief Complaint: Shortness Of Breath Stated Complaint: SHORTNESS OF BREATH Time Seen by Provider: 02/12/18 08:16 Notes: 22-year-old male history of asthma to the emergency department via ambulance for chief complaint shortness of breath. Patient smokes daily. Marijuana use daily. Was recently admitted approximately 3 months ago for asthma exacerbation. EMS arrived to find patient a 82% on room air. Oxygen was placed. Breathing treatment given in route. No IV established currently. Patient denies any other major symptoms at this time other than some mild nausea. TRAVEL OUTSIDE OF THE [place] IN LAST 30 DAYS: No - Related Data Allergies/Adverse Reactions: iodine Allergy (Verified 02/12/18 10:00) seafood Allergy (Uncoded 02/12/18 10:05) Past Medical History - General Information source: Patient - Social History Smoking Status: Current Every Day Smoker Chew tobacco use (# tins/day): No Frequency of alcohol use: None Drug Abuse: Marijuana Lives with: Alone Family History: Reviewed & Not Pertinent Patient has suicidal ideation: No Patient has homicidal ideation: No - Past Medical History Cardiac Medical History: Reports: None Pulmonary Medical History: Reports: Hx Asthma Renal/ Medical History: Denies: Hx Peritoneal Dialysis Psychiatric Medical History: Denies: Hx Depression - Immunizations Hx Diphtheria, Pertussis, Tetanus Vaccination: Yes Review of Systems - Review of Systems Constitutional: No symptoms reported EENT: No symptoms reported Cardiovascular: Palpitations, Heart racing Respiratory: Cough, Hurts to breathe, Short of breath, Wheezing Gastrointestinal: No symptoms reported Genitourinary: No symptoms reported Male Genitourinary: No symptoms reported Musculoskeletal: No symptoms reported Skin: No symptoms reported Hematologic/Lymphatic: No symptoms reported Neurological/Psychological: No symptoms reported Physical Exam - Vital signs Vitals: Resp Pulse Ox 14 90 L 02/12/18 08:19 02/12/18 08:19 Interpretation: Tachycardic, Hypoxic, Tachypneic - General General appearance: Appears well, Alert - HEENT Head: Normocephalic, Atraumatic Eyes: Normal Pupils: PERRL - Respiratory Respiratory status: No respiratory distress Chest status: Nontender Breath sounds: Decreased air movement, Nonproductive cough, Wheezing Chest palpation: Normal - Cardiovascular Rhythm: Tachycardia Heart sounds: Normal auscultation Murmur: No - Abdominal Inspection: Normal Distension: No distension Bowel sounds: Normal Tenderness: Nontender Organomegaly: No organomegaly - Back Back: Normal, Nontender - Extremities General upper extremity: Normal inspection, Nontender, Normal color, Normal ROM , Normal temperature General lower extremity: Normal inspection, Nontender, Normal color, Normal ROM , Normal temperature, Normal weight bearing. No: Melissa's sign - Neurological Neuro grossly intact: Yes Cognition: Normal Orientation: AAOx4 Jameson Coma Scale Eye Opening: Spontaneous Jameson Coma Scale Verbal: Oriented Jameson Coma Scale Motor: Obeys Commands Jameson Coma Scale Total: 15 Speech: Normal Motor strength normal: LUE, RUE, LLE, RLE Sensory: Normal - Psychological Associated symptoms: Normal affect, Normal mood - Skin Skin Temperature: Warm Skin Moisture: Dry Skin Color: Normal Course - Re-evaluation Re-evalutation: 02/12/18 09:53 Patient doing better at this time but was significantly hypoxic on arrival. Will add CTA of the chest. Antibiotics started. Will add ABG at this time. Consulted Dr. Underwood and will admit as well. 02/12/18 12:05 Laboratory 02/12/18 02/12/18 08:31 08:31 WBC 10.1 RBC 5.71 H Hgb 17.4 H Hct 51.2 H MCV 90 MCH 30.6 MCHC 34.1 RDW 13.3 Plt Count 288 Seg Neutrophils % 66.1 Lymphocytes % 14.1 Monocytes % 6.1 Eosinophils % 12.9 H Basophils % 0.8 Absolute Neutrophils 6.7 Absolute Lymphocytes 1.4 Absolute Monocytes 0.6 Absolute Eosinophils 1.3 H Absolute Basophils 0.1 Sodium 145.1 H Potassium 4.8 Chloride 104 Carbon Dioxide 27 Anion Gap 14 BUN 10 Creatinine 0.82 Est GFR ( Amer) > 60 Est GFR (Non-Af Amer) > 60 Glucose 100 Calcium 10.1 Total Bilirubin 0.7 Direct Bilirubin 0.3 Neonat Total Bilirubin Not Reportable Neonat Direct Bilirubin Not Reportable Neonat Indirect Bili Not Reportable AST 29 ALT 31 Alkaline Phosphatase 98 Total Protein 7.3 Albumin 4.4 Chest X-Ray 02/12/18 08:23 IMPRESSION: Minimal streaky infiltrate right mid lung field Chest/Abdomen CTA 02/12/18 09:53 IMPRESSION: No CT evidence for central pulmonary embolus. Scattered Patchy bilateral areas of infiltrate/ airspace disease. - Vital Signs Vital signs: Temp Pulse Resp BP Pulse Ox 26 H 136/82 H 89 L 02/12/18 11:42 02/12/18 11:42 02/12/18 11:42 - Laboratory Result Diagrams: 02/12/18 08:31 02/12/18 08:31 Laboratory results interpreted by me: 02/12/18 02/12/18 08:31 08:31 RBC 5.71 H Hgb 17.4 H Hct 51.2 H Eosinophils % 12.9 H Absolute Eosinophils 1.3 H Sodium 145.1 H - EKG Interpretation by Me EKG shows normal: [place], Intervals, QRS Complexes, ST-T Waves Rate: Tachycardia Critical Care Note - Critical Care Note Total time excluding time spent on procedures (mins): 35 Comments: Tachypnea, hypoxia, tachycardia Discharge - Discharge Clinical Impression: Right middle lobe pneumonia Qualifiers: Pneumonia type: due to unspecified organism Qualified Code(s): J18.1 - Lobar pneumonia, unspecified organism Asthma exacerbation Qualifiers: Asthma severity: severe Asthma persistence: persistent Qualified Code(s): J45.51 - Severe persistent asthma with (acute) exacerbation Disposition: ADMITTED INPATIENT Admitting Provider: [facility] Admitted: Telemetry
[2018-02-12] MEDS ORDERED: ALBUTEROL SULFATE 0.083% NEB 2.5 MG/3 ML AMPUL NEB ONE (08:41)
--- NOTE | 2018-02-12 08:47 | RADIOLOGY REPORT (SQ) ---
EXAM DESCRIPTION: CHEST SINGLE VIEW portable COMPLETED DATE/TIME: 02/12/2018 8:38 am REASON FOR STUDY: sob COMPARISON: 10/24/2017 EXAM PARAMETERS: NUMBER OF VIEWS: One view. TECHNIQUE: Single frontal radiographic view of the chest acquired. RADIATION DOSE: NA LIMITATIONS: None. FINDINGS: LUNGS AND PLEURA: Minimal streaky infiltrate noted through the right mid lung field. Lung s otherwise clear. MEDIASTINUM AND HILAR STRUCTURES: No masses. Contour normal. HEART AND VASCULAR STRUCTURES: Heart normal in size. Normal vasculature. BONES: No acute findings. HARDWARE: None in the chest. OTHER: No other significant finding. IMPRESSION: Minimal streaky infiltrate right mid lung field TECHNICAL DOCUMENTATION: JOB ID: [id number] [employer]- All Rights Reserved Reading location - IP/workstation name: [email or web address]
[2018-02-12 08:49] LABS: ABSOLUTE BASOPHILS # (AUTO) 0.1 10^3/uL (0.0-0.2); ABSOLUTE EOSINOPHILS # (AUTO) 1.3 10^3/uL (0.0-0.6); ABSOLUTE LYMPHOCYTES (AUTO) 1.4 10^3/uL (0.5-4.7); ABSOLUTE MONOCYTES (AUTO) 0.6 10^3/uL (0.1-1.4); ABSOLUTE NEUT (AUTO) 6.7 10^3/uL (1.7-8.2); BASOPHILS % (AUTO) 0.8 % (0-2); EOSINOPHILS % (AUTO) 12.9 % (0-6); HEMATOCRIT 51.2 % (37.9-51.0); HEMOGLOBIN 17.4 g/dL (13.5-17.0); LYMPHOCYTES % (AUTO) 14.1 % (13-45); MEAN CORPUSCULAR HEMOGLOBIN 30.6 pg (27.0-33.4); MEAN CORPUSCULAR HGB CONC 34.1 g/dL (32.0-36.0); MEAN CORPUSCULAR VOLUME 90 fl (80-97); MONOCYTES % (AUTO) 6.1 % (3-13); PLATELET COUNT 288 10^3/uL (150-450); RED BLOOD COUNT 5.71 10^6/uL (4.35-5.55); RED CELL DISTRIBUTION WIDTH 13.3 % (11.5-14.0); SEGMENTED NEUTROPHILS % (AUTO) 66.1 % (42-78); TOTAL CELLS COUNTED % (AUTO) 100 %; WHITE BLOOD COUNT 10.1 10^3/uL (4.0-10.5)
[2018-02-12 09:11] LABS: ALANINE AMINOTRANSFERASE 31 U/L (21-72); ALBUMIN 4.4 g/dL (3.5-5.0); ALKALINE PHOSPHATASE 98 U/L (38-126); ANION GAP 14 (5-19); ASPARTATE AMINO TRANSFERASE 29 U/L (17-59); BILIRUBIN,DIRECT 0.3 mg/dL (0.0-0.4); BILIRUBIN,TOTAL 0.7 mg/dL (0.2-1.3); BLOOD UREA NITROGEN 10 mg/dL (7-20); CALCIUM 10.1 mg/dL (8.4-10.2); CARBON DIOXIDE 27 mmol/L (22-30); CHLORIDE 104 mmol/L (98-107); GLUCOSE 100 mg/dL (75-110); POTASSIUM 4.8 mmol/L (3.6-5.0); SODIUM 145.1 mmol/L (137-145); TOTAL PROTEIN 7.3 g/dL (6.3-8.2)
[2018-02-12] MEDS ORDERED: CEFTRIAXONE 1 GM/D5W RTU 1 GM/50 ML RTUPB IV ONE (09:32)
[2018-02-12] MEDS ORDERED: DOXYCYCLINE HYCLATE 100 MG TABLET PO ONE (09:33)
[2018-02-12] MEDS ORDERED: DIPHENHYDRAMINE HCL 50 MG/ML VIAL IV ONE (10:06)
--- NOTE | 2018-02-12 10:49 | RADIOLOGY REPORT (SQ) ---
EXAM DESCRIPTION: CTA CHEST COMPLETED DATE/TIME: 02/12/2018 10:31 am REASON FOR STUDY: chest pain and sob COMPARISON: Chest x-ray same date TECHNIQUE: CT scan of the chest performed using helical scanning technique with dynamic intravenous contrast injection. Images reviewed with lung, soft tissue and bone windows. Reconstructed coronal and sagittal MPR images reviewed. Additional 3 dimensional post-processing performed to develop Maximal Intensity Projection images (CT P). All images stored on PACS. All CT scanners at this facility use dose modulation, iterative reconstruction, and/or weight based d osing when appropriate to reduce radiation dose to as low as reasonably achievable (ALARA). [facility]: Dose Right [facility]: CareDose [facility]: Dose Right [facility]: Teradose 4D [facility]: Workhint CONTRAST TYPE AND DOSE: contrast/concentration: Isovue 370.00 mg/ml; Total Contrast Delivered: 82.0 ml; Total Saline Delivered: 90.0 ml 82 mL Isovue 370 intravenously Contrast bolus optimized for the pulmonary arteries. Not diagnostic for the aorta. RENAL FUNCTION: Creatinine 0.82 RADIATION DOSE: CT Rad equipment meets quality standard of care and radiation dose reduction techniq ues were employed. CTDIvol: 14.7 - 46.3 mGy. DLP: 662 mGy-cm. . LIMITATIONS: None. FINDINGS: LUNGS AND PLEURA: Scattered Patchy areas of infiltrate/ airspace disease with ground-glas s appearance seen of both lung callahan, more prominent right lung, concerning for pneumonia and/or ed nawaf. AORTA AND GREAT VESSELS: No aneurysm. Contrast bolus not optimized for the aorta. HEART: No pericardial effusion. No significant coronary artery calcifications. PULMONARY ARTERIES: No emboli visualized in the main pulmonary arteries or the segmental branches. HILAR AND MEDIASTINAL STRUCTURES: No bulky adenopathy. HARDWARE: None in the chest. UPPER ABDOMEN: No significant findings. Limited exam. THYROID AND OTHER SOFT TISSUES: No masses. No adenopathy. BONES: No acute or significant finding. 3D MIPS: Confirm above findings. OTHER: No other significant finding. IMPRESSION: No CT evidence for central pulmonary embolus. Scattered Patchy bilateral areas of infiltrate/ airspace disease. COMMENT: Quality ID # [id number]: Final reports with documentation of one or more dose reduction techniques (e.g., Automated exposure control, adjustment of the mA and/or kV according to patient size, use of iterative reconstruction technique) TECHNICAL DOCUMENTATION: JOB ID: [id number] [employer] [facility]- All Rights Reserved Reading location - IP/workstation name: [email or web address]
[2018-02-12 12:14] LABS: APPEARANCE,URINE CLEAR; BILIRUBIN,URINE NEGATIVE (NEGATIVE); COLOR,URINE YELLOW; GLUCOSE, URINE NEGATIVE (NEGATIVE); KETONES,URINE 20 mg/dL (NEGATIVE); LEUKOCYTE ESTERASE,URINE NEGATIVE (NEGATIVE); NITRITE,URINE NEGATIVE (NEGATIVE); PROTEIN,URINE NEGATIVE (NEGATIVE); URINE SPECIFIC GRAVITY 1.036; UROBILINOGEN,URINE NEGATIVE mg/dL (<2.0)
[2018-02-12 12:17] LABS: ARTERIAL BLOOD BASE EXCESS -1.7 mmol/L; ARTERIAL BLOOD H2CO3 0.99 mmol/L (1.05-1.35); ARTERIAL BLOOD HCO3 21.5 mmol/L (20-26); ARTERIAL BLOOD O2 SATURATION 94.4 % (94-98); ARTERIAL BLOOD PH 7.43 (7.35-7.45); ARTERIAL BLOOD PO2 68.8 mmHg (80-100); ARTERIAL BLOOD TOTAL CO2 22.5 mmol/L (23-27)
[2018-02-12 12:20] LABS: ARTERIAL BLOOD FIO2 3L
[2018-02-12] MEDS ORDERED: LEVALBUTEROL HCL NEB 0.63 MG/3 ML AMPUL NEB PRN (12:33)
[2018-02-12] MEDS ORDERED: ACETAMINOPHEN 325 MG TABLET PO PRN (12:33)
[2018-02-12] MEDS ORDERED: ONDANSETRON 4 MG TAB.RAPDIS PO PRN (12:33)
[2018-02-12] MEDS: METHYLPREDNISOLONE INJ 125 MG/2 ML SDV IV SCH ×2 (13:30→21:51)
--- NOTE | 2018-02-12 13:49 | EKG REPORT ---
SEVERITY:- OTHERWISE NORMAL ECG - SINUS TACHYCARDIA : Confirmed by: Sumanth Marcial MD 12-Feb-2018 13:48:24
[2018-02-12] MEDS ORDERED: ENOXAPARIN SODIUM INJ 40 MG/0.4 ML DISP.SYRIN SUBCUT ONE (14:00)
[2018-02-12 14:32] LABS: CREATINE KINASE MB 2.44 ng/mL (<4.55)
[2018-02-12 14:35] LABS: TROPONIN I < 0.012 ng/mL
[2018-02-12 16:05] LABS: URINE AMPHETAMINES SCREEN NEGATIVE; URINE BARBITURATES SCREEN NEGATIVE; URINE BENZODIAZEPINES SCREEN NEGATIVE; URINE COCAINE SCREEN NEGATIVE; URINE METHADONE SCREEN NEGATIVE; URINE PHENCYCLIDINE SCREEN NEGATIVE
[2018-02-12 16:22] LABS: URINE MARIJUANA (THC) SCREEN UNCONFIRMED POSITIVE
[2018-02-12] MEDS: IPRATROPIUM/ALBUTEROL 0.5-2.5 MG/3 ML AMPUL NEB SCH ×2 (16:25→20:41)
--- NOTE | 2018-02-12 17:30 | PDOC H&P ---
History of Present Illness Admission Date/PCP: 02/12/18 10:06 Patient complains of: hard time catching his breath at home History of Present Illness: FRANDY HANSEN is a 22 year old man who has asthma and who smokes several cigarettes a day and regular marijuana. He has been feelign short of breath and possibly feverish for 1-2 weeks. He has been using nebs at home, has taken some amoxicillin that he had at home, and smoked marijuana because he thought it was helping him breath better. None of those things helped. Today he had tightness in chest and felt that he was working with only one lung, got nervous , came to ED. In ED he is found to be hypoxic with sats 80's on RA, no O2 use at baseline. He is wheezing. Admitted to hospitalist for acute hypoxemic respiratory failure and asthma exacerbation. Past Medical History Cardiac Medical History: Reports: None Denies: Pulmonary Embolism Pulmonary Medical History: Reports: Asthma, Respiratory Failure Denies: Chronic Obstructive Pulmonary Disease (COPD), Intubation EENT Medical History: Denies: None Neurological Medical History: Denies: None Endocrine Medical History: Denies: None Renal/ Medical History: Denies: None Malignancy Medical History: Denies: None GI Medical History: Denies: None Musculoskeltal Medical History: Denies: None Skin Medical History: Denies: None Psychiatric Medical History: Reports: Tobacco Dependency Denies: Alcohol Dependency, Depression Traumatic Medical History: Denies: None Hematology: Reports: None Infectious Medical History: Denies: None Past Surgical History Past Surgical History: Reports: None Social History Information Source: Patient Lives with: Friend Smoking Status: Current Every Day Smoker Cigarettes Packs Per Day: 2 Frequency of Alcohol Use: None Hx Recreational Drug Use: Yes Drugs: Marijuana Hx Prescription Drug Abuse: No - Advance Directive Resuscitation Status: Full Code Family History Family History: Reviewed & Not Pertinent Parental Family History Reviewed: Yes - CAD Children Family History Reviewed: Yes Sibling(s) Family History Reviewed.: Yes Medication/Allergy Home Medications: Albuterol Sulfate [Albuterol Sulfate 2.5mg/3 mL] 1 vial NEB TIDP PRN 02/12/18 Albuterol Sulfate [Proair HFA Inhalation Aerosol 8.5 gm MDI] 2 puff IH Q4HP PRN 02/12/18 Loratadine [Claritin 10 mg Tablet] 10 mg PO DAILY 02/12/18 Allergies/Adverse Reactions: iodine Allergy (Verified 02/12/18 10:00) seafood Allergy (Uncoded 02/12/18 10:05) Review of Systems Constitutional: PRESENT: fever(s) Eyes: ABSENT: visual disturbances Ears: ABSENT: hearing changes Nose, Mouth, and Throat: ABSENT: headache(s), mouth pain, sore throat Cardiovascular: PRESENT: chest pain, dyspnea on exertion. ABSENT: edema, palpitations Respiratory: PRESENT: cough, dyspnea, sputum. ABSENT: hemoptysis Gastrointestinal: ABSENT: abdominal pain, constipation, diarrhea, nausea, vomiting Genitourinary: ABSENT: difficulty urinating Musculoskeletal: ABSENT: back pain Integumentary: ABSENT: diaphoresis, pruritus Neurological: ABSENT: confusion, dizziness, weakness Psychiatric: PRESENT: anxiety. ABSENT: depression Hematologic/Lymphatic: ABSENT: easy bleeding, easy bruising Allergic/Immunologic: PRESENT: seasonal rhinorrhea Physical Exam Vital Signs: Temp Pulse Resp BP Pulse Ox 98.3 F 104 H 16 134/76 H 89 L 02/12/18 15:14 02/12/18 15:14 02/12/18 15:14 02/12/18 15:14 02/12/18 15:14 Intake & Output 02/11/18 02/12/18 02/13/18 06:59 06:59 06:59 Weight 94.8 kg General appearance: PRESENT: no acute distress, well-developed, well-nourished Head exam: PRESENT: atraumatic, normocephalic Eye exam: PRESENT: EOMI. ABSENT: conjunctival injection, scleral icterus Mouth exam: PRESENT: moist, neck supple, tongue midline Respiratory exam: PRESENT: decreased breath sounds, prolonged expiratory phas, unlabored, wheezes. ABSENT: rales, retraction, rhonchi, stridor Cardiovascular exam: PRESENT: RRR. ABSENT: diastolic murmur, systolic murmur Pulses: PRESENT: normal radial pulses GI/Abdominal exam: PRESENT: normal bowel sounds, soft. ABSENT: distended, firm , guarding, tenderness Rectal exam: PRESENT: deferred Extremities exam: ABSENT: pedal edema Musculoskeletal exam: PRESENT: normal inspection Neurological exam: PRESENT: alert, awake, oriented to person, oriented to place , oriented to situation, CN II-XII grossly intact Psychiatric exam: PRESENT: appropriate affect. ABSENT: anxious Skin exam: PRESENT: dry, intact, warm Results Laboratory Results: 02/12/18 02/12/18 02/12/18 11:15 11:53 13:25 Carbonic Acid 0.99 L HCO3/H2CO3 Ratio 21:1 ABG pH 7.43 ABG pCO2 33.0 L ABG pO2 68.8 L ABG HCO3 21.5 ABG O2 Saturation 94.4 ABG Base Excess -1.7 FiO2 3L TSH 0.45 L Urine Color YELLOW Urine Appearance CLEAR Urine pH 7.0 Ur Specific [place] 1.036 Urine Protein NEGATIVE Urine Glucose (UA) NEGATIVE Urine Ketones 20 H Urine Blood NEGATIVE Urine Nitrite NEGATIVE Ur Leukocyte Esterase NEGATIVE Urine WBC (Auto) 2 Urine RBC (Auto) 1 02/12/18 02/12/18 13:25 13:25 Creatine Kinase 138 CK-MB (CK-2) 2.44 Troponin I < 0.012 Impressions: Chest X-Ray 02/12/18 08:23 IMPRESSION: Minimal streaky infiltrate right mid lung field Chest/Abdomen CTA 02/12/18 09:53 IMPRESSION: No CT evidence for central pulmonary embolus. Scattered Patchy bilateral areas of infiltrate/ airspace disease. Assessment & Plan - Diagnosis (1) Acute hypoxemic respiratory failure Is this a current diagnosis for this admission?: Yes Plan: This is secondary to asthma exacerbation and possible pneumonia. Patient is hypoxemic on ABG. I am increasing his O2 nasal cannula used to 4 L, we will recheck ABG in half hour to 1 hour. He is not in distress, unlabored breathing , no retractions or stridor. We will monitor closely and treat underlying pneumonia and asthma exacerbation. We will also continue counseling him on the importance of tobacco and marijuana discontinuation. (2) Asthma exacerbation Qualifiers: Asthma severity: severe Asthma persistence: persistent Qualified Code(s) : J45.51 - Severe persistent asthma with (acute) exacerbation Is this a current diagnosis for this admission?: Yes Plan: He is having hypoxemia. He is wheezing. He is on Solu-Medrol 125 mg IV every 8 hours and will reassess tomorrow. He is on duo nebs every 4 hours around the clock and Xopenex every 2 hours as needed wheezing or dyspnea. Is also on antibiotics now for pneumonia, ceftriaxone and doxycycline. He is on telemetry. (3) Right middle lobe pneumonia Qualifiers: Pneumonia type: due to unspecified organism Qualified Code(s): J18.1 - Lobar pneumonia, unspecified organism Is this a current diagnosis for this admission?: Yes Plan: Community-acquired pneumonia. Patient has had fever at home. He is also had yellow sputum. He now has an asthma exacerbation. There are CT scan findings potentially consistent with a pneumonia. He is on ceftriaxone 1 g IV every 24 hours and doxycycline 100 mg p.o. every 12 hours. (4) Tobacco use disorder Is this a current diagnosis for this admission?: Yes Plan: Tobacco cessation counseling has begun, took place for 5 minutes during H&P. (5) Marijuana use Is this a current diagnosis for this admission?: Yes Plan: Marijuana cessation counseling has begun. We will continue education on the dangers of frequent marijuana usage. - Time Time Spent: Greater than 70 Minutes Smoking Cessation Education: 3 to 10 minutes Medications reviewed and adjusted accordingly: Yes - Inpatient Certification Based on my medical assessment, after consideration of the patient's comorbidities, presenting symptoms, or acuity I expect that the services needed warrant INPATIENT care.: Yes I certify that my determination is in accordance with my understanding of Medicare's requirements for reasonable and necessary INPATIENT services [42 CFR 412.3e].: Yes Medical Necessity: Need For Continuous Telemetry Monitoring, Need for Nebulizer Therapy and Monitoring of Response
[2018-02-12 18:03] LABS: FREE T3 4.83 pg/mL (2.77-5.27); FREE T4 (FREE THYROXINE) 2.12 ng/dL (0.78-2.19)
[2018-02-12 19:45] LABS: ARTERIAL BLOOD BASE EXCESS -0.4 mmol/L; ARTERIAL BLOOD H2CO3 1.09 mmol/L (1.05-1.35); ARTERIAL BLOOD HCO3 23.4 mmol/L (20-26); ARTERIAL BLOOD O2 SATURATION 96.3 % (94-98); ARTERIAL BLOOD PCO2 36.3 mmHg (35-45); ARTERIAL BLOOD PH 7.43 (7.35-7.45); ARTERIAL BLOOD PO2 81.2 mmHg (80-100); ARTERIAL BLOOD TOTAL CO2 24.5 mmol/L (23-27)
[2018-02-12 19:48] LABS: ARTERIAL BLOOD FIO2 4L
[2018-02-12] MEDS: DOXYCYCLINE HYCLATE 100 MG TABLET PO SCH (21:51)
[2018-02-13] MEDS: IPRATROPIUM/ALBUTEROL 0.5-2.5 MG/3 ML AMPUL NEB SCH ×5 (00:01→19:52)
[2018-02-13 05:17] LABS: HEMATOCRIT 47.1 % (37.9-51.0); HEMOGLOBIN 16.2 g/dL (13.5-17.0); MEAN CORPUSCULAR HEMOGLOBIN 30.4 pg (27.0-33.4); MEAN CORPUSCULAR HGB CONC 34.5 g/dL (32.0-36.0); MEAN CORPUSCULAR VOLUME 88 fl (80-97); PLATELET COUNT 295 10^3/uL (150-450); RED BLOOD COUNT 5.33 10^6/uL (4.35-5.55); RED CELL DISTRIBUTION WIDTH 13.3 % (11.5-14.0); WHITE BLOOD COUNT 8.8 10^3/uL (4.0-10.5)
[2018-02-13] MEDS: METHYLPREDNISOLONE INJ 125 MG/2 ML SDV IV SCH ×3 (05:17→17:33)
[2018-02-13 05:35] LABS: ANION GAP 14 (5-19); BLOOD UREA NITROGEN 11 mg/dL (7-20); CALCIUM 9.7 mg/dL (8.4-10.2); CARBON DIOXIDE 23 mmol/L (22-30); CHLORIDE 105 mmol/L (98-107); GLUCOSE 141 mg/dL (75-110); POTASSIUM 4.4 mmol/L (3.6-5.0); SODIUM 142.3 mmol/L (137-145)
[2018-02-13] MEDS: ENOXAPARIN SODIUM INJ 40 MG/0.4 ML DISP.SYRIN SUBCUT SCH (09:34)
[2018-02-13] MEDS: DOXYCYCLINE HYCLATE 100 MG TABLET PO SCH ×2 (09:36→21:13)
[2018-02-13] MEDS: CEFTRIAXONE SODIUM 1,000 MG in DEXTROSE 5%-WATER 50 ML IV SCH (09:37)
[2018-02-13] MEDS ORDERED: CEFTRIAXONE 1 GM/D5W RTU 1 GM/50 ML RTUPB IV SCH (10:00)
[2018-02-13 15:33] LABS: CREATINE KINASE MB 2.43 ng/mL (<4.55)
[2018-02-13 15:34] LABS: TROPONIN I < 0.012 ng/mL
--- NOTE | 2018-02-13 16:37 | PDOC PROGRESS REPORT ---
Subjective Progress Note for:: 02/13/18 Subjective:: Patient feels better. The tightness in his chest is improved. He feels some pleuritic chest pain in his right lung. He is bringing up a little bit of sputum. Yellow, a little bit of blood streaking. No other chest pain. No fevers or chills. He is eating and drinking well. He is able to walk to the restroom without respiratory difficulty. Reason For Visit: ACUTE HYPOXEMIC RESPIRATORY FAILLURE Physical Exam Vital Signs: Temp Pulse Resp BP Pulse Ox 98.3 F 114 H 16 139/65 H 95 02/13/18 11:51 02/13/18 12:17 02/13/18 12:17 02/13/18 11:51 02/13/18 11:51 Intake & Output 02/12/18 02/13/18 02/14/18 06:59 06:59 06:59 Intake Total 499 Balance 499 Weight 97.3 kg General appearance: PRESENT: no acute distress, cooperative Head exam: PRESENT: atraumatic, normocephalic Eye exam: ABSENT: conjunctival injection, scleral icterus Mouth exam: PRESENT: moist Respiratory exam: PRESENT: decreased breath sounds, prolonged expiratory phas, unlabored, wheezes. ABSENT: rales, rhonchi Cardiovascular exam: PRESENT: tachycardia. ABSENT: systolic murmur Pulses: PRESENT: normal radial pulses GI/Abdominal exam: PRESENT: normal bowel sounds, soft. ABSENT: distended, firm , guarding, tenderness Rectal exam: PRESENT: deferred Extremities exam: ABSENT: pedal edema Musculoskeletal exam: PRESENT: normal inspection Neurological exam: PRESENT: alert, awake, oriented to person, oriented to place , oriented to situation, CN II-XII grossly intact Psychiatric exam: PRESENT: appropriate affect. ABSENT: anxious Skin exam: PRESENT: dry, warm Results Laboratory Results: 02/13/18 04:40 02/13/18 04:40 02/12/18 02/12/18 02/13/18 13:25 19:20 04:40 WBC 8.8 RBC 5.33 Hgb 16.2 Hct 47.1 MCV 88 MCH 30.4 MCHC 34.5 RDW 13.3 Plt Count 295 Carbonic Acid 1.09 HCO3/H2CO3 Ratio 21:1 ABG pH 7.43 ABG pCO2 36.3 ABG pO2 81.2 ABG HCO3 23.4 ABG O2 Saturation 96.3 ABG Base Excess -0.4 FiO2 4L Sodium Potassium Chloride Carbon Dioxide Anion Gap BUN Creatinine Est GFR ( Amer) Est GFR (Non-Af Amer) Glucose Calcium Free T4 2.12 Free T3 pg/mL 4.83 02/13/18 04:40 WBC RBC Hgb Hct MCV MCH MCHC RDW Plt Count Carbonic Acid HCO3/H2CO3 Ratio ABG pH ABG pCO2 ABG pO2 ABG HCO3 ABG O2 Saturation ABG Base Excess FiO2 Sodium 142.3 Potassium 4.4 Chloride 105 Carbon Dioxide 23 Anion Gap 14 BUN 11 Creatinine 0.67 Est GFR ( Amer) > 60 Est GFR (Non-Af Amer) > 60 Glucose 141 H Calcium 9.7 Free T4 Free T3 pg/mL 02/12/18 02/12/18 02/13/18 13:25 13:25 14:42 Creatine Kinase 138 98 CK-MB (CK-2) 2.44 Troponin I < 0.012 02/13/18 14:42 Creatine Kinase CK-MB (CK-2) 2.43 Troponin I < 0.012 Impressions: Chest X-Ray 02/12/18 08:23 IMPRESSION: Minimal streaky infiltrate right mid lung field Chest/Abdomen CTA 02/12/18 09:53 IMPRESSION: No CT evidence for central pulmonary embolus. Scattered Patchy bilateral areas of infiltrate/ airspace disease. Assessment & Plan - Diagnosis (1) Acute hypoxemic respiratory failure Is this a current diagnosis for this admission?: Yes Plan: Secondary to pneumonia and asthma exacerbation. Please see those problems for details of treatment. His acute hypoxemia respiratory failure is improving as he is now requiring 2-1/2 L of oxygen versus 4 yesterday. We will continue to wean down his oxygen as we are safely able to do so. (2) Asthma exacerbation Qualifiers: Asthma severity: severe Asthma persistence: persistent Qualified Code(s) : J45.51 - Severe persistent asthma with (acute) exacerbation Is this a current diagnosis for this admission?: Yes Plan: Patient is still tight and wheezy with poor air movement. He does is feeling significantly better and his hypoxemia is improving. No respiratory distress. Will start to wean his steroids. We will continue with antibiotics. Secondary to tachycardia I have decreased his [id number] duo nebs to every 6 hours. (3) Right middle lobe pneumonia Qualifiers: Pneumonia type: due to unspecified organism Qualified Code(s): J18.1 - Lobar pneumonia, unspecified organism Is this a current diagnosis for this admission?: Yes Plan: We will continue with doxycycline and ceftriaxone. He is improving clinically and symptomatically from this perspective. (4) Tobacco use disorder Is this a current diagnosis for this admission?: Yes Plan: Not discussed today, patient will need tobacco cessation counseling again prior to discharge. (5) Marijuana use Is this a current diagnosis for this admission?: Yes Plan: The dangers of marijuana use in the setting of smell were discussed with the patient on admission. Another round of counseling would be beneficial probably. (6) Tachycardia Is this a current diagnosis for this admission?: Yes Plan: This problem is multifactorial. We will keep him on telemetry. Troponin 2 were negative and he is low risk for coronary disease. The tachycardia is being contributed to by [id number] duo nebs, my exacerbation, pneumonia, also anxiety and some disagreements with his girlfriend. - Time Time Spent with patient: 25-34 minutes Anticipated discharge: Home - Inpatient Certification Based on my medical assessment, after consideration of the patient's comorbidities, presenting symptoms, or acuity I expect that the services needed warrant INPATIENT care.: Yes I certify that my determination is in accordance with my understanding of Medicare's requirements for reasonable and necessary INPATIENT services [42 CFR 412.3e].: Yes Medical Necessity: Significant Comorbidiites Make Outpatient Treatment Too Risky , Need Close Monitoring Due to Risk of Patient Decompensation
[2018-02-13] MEDS: LORATADINE 10 MG TABLET PO SCH (17:32)
[2018-02-14] MEDS: METHYLPREDNISOLONE INJ 125 MG/2 ML SDV IV SCH ×2 (01:59→09:44)
[2018-02-14] MEDS: IPRATROPIUM/ALBUTEROL 0.5-2.5 MG/3 ML AMPUL NEB SCH ×4 (02:50→19:58)
[2018-02-14 04:55] LABS: HEMATOCRIT 44.4 % (37.9-51.0); HEMOGLOBIN 15.3 g/dL (13.5-17.0); MEAN CORPUSCULAR HGB CONC 34.6 g/dL (32.0-36.0); MEAN CORPUSCULAR VOLUME 90 fl (80-97); PLATELET COUNT 296 10^3/uL (150-450); RED BLOOD COUNT 4.94 10^6/uL (4.35-5.55); RED CELL DISTRIBUTION WIDTH 13.4 % (11.5-14.0); WHITE BLOOD COUNT 13.6 10^3/uL (4.0-10.5)
[2018-02-14 05:23] LABS: ANION GAP 12 (5-19); BLOOD UREA NITROGEN 17 mg/dL (7-20); CALCIUM 9.7 mg/dL (8.4-10.2); CARBON DIOXIDE 25 mmol/L (22-30); CHLORIDE 107 mmol/L (98-107); GLUCOSE 135 mg/dL (75-110); POTASSIUM 4.4 mmol/L (3.6-5.0)
[2018-02-14] MEDS: DOXYCYCLINE HYCLATE 100 MG TABLET PO SCH ×2 (09:44→21:45)
[2018-02-14] MEDS: CEFTRIAXONE SODIUM 1,000 MG in DEXTROSE 5%-WATER 50 ML IV SCH (09:44)
[2018-02-14] MEDS: ENOXAPARIN SODIUM INJ 40 MG/0.4 ML DISP.SYRIN SUBCUT SCH (09:44)
--- NOTE | 2018-02-14 16:28 | PDOC PROGRESS REPORT ---
Subjective Progress Note for:: 02/14/18 Subjective:: Patient feels a lot better today. Still has some tightness in his right chest. He is eating and drinking without respiratory difficulty. He is able to get up to the restroom without too much breathing difficulty. Hurting to cough up some blood-streaked phlegm. No significant chest pain though with a little bit of what sounds like pleuritic chest pain. No nausea vomiting constipation or diarrhea. No fevers r chills. Reason For Visit: ACUTE HYPOXEMIC RESPIRATORY FAILLURE Physical Exam Vital Signs: Temp Pulse Resp BP Pulse Ox 97.9 F 110 H 18 132/65 H 94 02/14/18 15:12 02/14/18 15:12 02/14/18 15:12 02/14/18 15:12 02/14/18 15:12 Intake & Output 02/13/18 02/14/18 02/15/18 06:59 06:59 06:59 Intake Total 499 1610 Balance 499 1610 Weight 97.3 kg 97 kg General appearance: PRESENT: no acute distress, cooperative Head exam: PRESENT: atraumatic, normocephalic Eye exam: ABSENT: conjunctival injection, scleral icterus Mouth exam: PRESENT: neck supple Respiratory exam: PRESENT: decreased breath sounds, prolonged expiratory phas, unlabored, wheezes. ABSENT: rales, retraction, rhonchi Cardiovascular exam: PRESENT: tachycardia. ABSENT: systolic murmur Pulses: PRESENT: normal radial pulses GI/Abdominal exam: PRESENT: normal bowel sounds, soft. ABSENT: distended, guarding, tenderness Extremities exam: ABSENT: pedal edema Neurological exam: PRESENT: alert, awake, oriented to person, oriented to place , oriented to situation, CN II-XII grossly intact Psychiatric exam: PRESENT: unusual affect. ABSENT: anxious Skin exam: PRESENT: dry, intact, warm Results Laboratory Results: 02/14/18 04:13 02/14/18 04:13 02/14/18 02/14/18 04:13 04:13 WBC 13.6 H RBC 4.94 Hgb 15.3 Hct 44.4 MCV 90 MCH 31.0 MCHC 34.6 RDW 13.4 Plt Count 296 Sodium 144.0 Potassium 4.4 Chloride 107 Carbon Dioxide 25 Anion Gap 12 BUN 17 Creatinine 0.69 Est GFR ( Amer) > 60 Est GFR (Non-Af Amer) > 60 Glucose 135 H Calcium 9.7 02/12/18 02/12/18 02/13/18 13:25 13:25 14:42 Creatine Kinase 138 98 CK-MB (CK-2) 2.44 Troponin I < 0.012 02/13/18 14:42 Creatine Kinase CK-MB (CK-2) 2.43 Troponin I < 0.012 Impressions: Chest X-Ray 02/12/18 08:23 IMPRESSION: Minimal streaky infiltrate right mid lung field Chest/Abdomen CTA 02/12/18 09:53 IMPRESSION: No CT evidence for central pulmonary embolus. Scattered Patchy bilateral areas of infiltrate/ airspace disease. Assessment & Plan - Diagnosis (1) Acute hypoxemic respiratory failure Is this a current diagnosis for this admission?: Yes Plan: Today we did a trial of room air and patient is satting in the mid 90s without ox. We will continue with no nasal cannula O2 for now. We are treating underlying asthma exacerbation and pneumonia. (2) Asthma exacerbation Qualifiers: Asthma severity: severe Asthma persistence: persistent Qualified Code(s) : J45.51 - Severe persistent asthma with (acute) exacerbation Is this a current diagnosis for this admission?: Yes Plan: We will continue doxycycline and every 6 hours nebs with as needed Xopenex. Have transitioned steroids to prednisone 40 mg p.o. twice daily. (3) Right middle lobe pneumonia Qualifiers: Pneumonia type: due to unspecified organism Qualified Code(s): J18.1 - Lobar pneumonia, unspecified organism Is this a current diagnosis for this admission?: Yes Plan: Continue oral doxycycline and change ceftriaxone to Vantin 200 mg p.o. every 12 hours. (4) Tobacco use disorder Is this a current diagnosis for this admission?: Yes Plan: Given the severity of his asthma we will need to continue tobacco cessation counseling until discharge. (5) Marijuana use Is this a current diagnosis for this admission?: Yes Plan: Given severity of asthma we will continue with marijuana cessation counseling until discharge. (6) Tachycardia Is this a current diagnosis for this admission?: Yes Plan: Moved today with improvement in acute problems and decrease in nebulizer frequency. Continue to monitor on telemetry. Check enzymes negative. - Time Time Spent with patient: 25-34 minutes Medications reviewed and adjusted accordingly: Yes - Inpatient Certification Based on my medical assessment, after consideration of the patient's comorbidities, presenting symptoms, or acuity I expect that the services needed warrant INPATIENT care.: Yes I certify that my determination is in accordance with my understanding of Medicare's requirements for reasonable and necessary INPATIENT services [42 CFR 412.3e].: Yes Medical Necessity: Risk of Complication if Not Cared For in Hospital - Plan Summary Plan Summary: Patient does not have a funding source and it may be difficult for him to get prescriptions. He will call some family members including his father to see if he can help with buying medications on discharge. Patient will need antibiotics , steroids, DuoNeb's he has a nebulizer machine at home. Also the [facility] and hopefully be able to make him an appointment there prior to discharge.
[2018-02-14] MEDS: PREDNISONE 20 MG TABLET PO SCH (17:42)
[2018-02-14] MEDS: LORATADINE 10 MG TABLET PO SCH (17:43)
[2018-02-14] MEDS: CEFPODOXIME 200 MG TABLET PO SCH (21:45)
[2018-02-15] MEDS: IPRATROPIUM/ALBUTEROL 0.5-2.5 MG/3 ML AMPUL NEB SCH ×3 (01:54→13:37)
[2018-02-15 05:28] LABS: HEMATOCRIT 43.2 % (37.9-51.0); HEMOGLOBIN 14.8 g/dL (13.5-17.0); MEAN CORPUSCULAR HEMOGLOBIN 30.7 pg (27.0-33.4); MEAN CORPUSCULAR HGB CONC 34.3 g/dL (32.0-36.0); MEAN CORPUSCULAR VOLUME 90 fl (80-97); PLATELET COUNT 266 10^3/uL (150-450); RED BLOOD COUNT 4.82 10^6/uL (4.35-5.55); RED CELL DISTRIBUTION WIDTH 13.4 % (11.5-14.0); WHITE BLOOD COUNT 10.3 10^3/uL (4.0-10.5)
[2018-02-15 06:07] LABS: ANION GAP 10 (5-19); BLOOD UREA NITROGEN 17 mg/dL (7-20); CALCIUM 9.5 mg/dL (8.4-10.2); CARBON DIOXIDE 28 mmol/L (22-30); CHLORIDE 104 mmol/L (98-107); GLUCOSE 101 mg/dL (75-110); POTASSIUM 5.1 mmol/L (3.6-5.0); SODIUM 142.4 mmol/L (137-145)
[2018-02-15] MEDS: CEFPODOXIME 200 MG TABLET PO SCH (11:52)
[2018-02-15] MEDS: PREDNISONE 20 MG TABLET PO SCH (11:53)
[2018-02-15] MEDS: DOXYCYCLINE HYCLATE 100 MG TABLET PO SCH (11:53)
[2018-02-15] MEDS: ENOXAPARIN SODIUM INJ 40 MG/0.4 ML DISP.SYRIN SUBCUT SCH (11:56)
[2018-02-15 14:23] VITALS: BP 117/68
--- NOTE | 2018-02-16 16:10 | DISCHARGE SUMMARY E ---
Discharge Summary NAME: FRANDY HANSEN : 1995 AGE: 22Y ADMITTED: 02/12/2018 DISCHARGED: 02/15/2018 CODE STATUS: FULL CODE. PRIMARY CARE PROVIDER: [facility]. DISCHARGE DIAGNOSES: Include: 1. Acute asthma exacerbation. 2. Tobacco dependency, continuous. 3. Right middle lobe pneumonia. 4. Acute hypoxemic respiratory failure. 5. Marijuana use. DISCHARGE MEDICATIONS: Include: 1. Prednisone 60 mg taper. 2. Claritin 10 mg p.o. daily. 3. Doxycycline 100 mg p.o. q.12 hours, 12 tablets, 0 refills. 4. ProAir HFA, 2 puffs inhalation q.4 hours p.r.n. 5. Albuterol 1 neb t.i.d. p.r.n. DIET: As tolerated. ACTIVITY: As tolerated. Flutter valve as needed. CONDITION: Good. DIAGNOSTICS: Lab values are as follows: Hematology obtained on 02/15/2018: WBCs are 10.3, hemoglobin is 14.9, hematocrit is 43.2, platelet count is 166,000. ABG obtained on 02/12/2018: PH of 7.043, pCO2 is 36.3, pO2 is 81.2, bicarb is 23.4. Chemistry obtained on 02/15/2018: Sodium is 142, potassium 5.1, chloride is 104, carbon dioxide is 28, BUN is 17, creatinine is 0.72, glucose 101. A1c is 4.8. Calcium is 9.5. Bilirubin is 0.7. AST 29, ALT 31, alk phos 98. CK 138, CK-MB 2.44. Troponin 0.012. Total protein 12.3, albumin 4.4. TSH is 0.45. T4 is 2.12. T3 is 4.83. Urinalysis obtained on 02/12/2018: Color: Yellow. Appearance: Clear. PH of 7.0, specific gravity is 1.036, protein negative, glucose negative, ketones 28, occult blood negative, nitrite negative, bili negative, urobilinogens negative, leukocyte esterase negative, WBCs are 2 to 1, RBCs 1, mucus rare, ascorbic acid is negative. Toxicology obtained on 02/12/2018: TSH is positive. Microbiology: Blood cultures obtained on 02/12/2018 revealed no growth. Sputum culture obtained on 02/12/2018 revealed no growth. Chest x-ray obtained on 02/12/2018 revealed minimal streaky infiltrate in the right middle lung. Chest CTA obtained on 02/12/[address] evidence for central pulmonary embolism. PHYSICAL EXAMINATION: GENERAL: On examination, the patient is a well-developed, well-nourished 22-year-old male, who is awake, alert and oriented to person, place, time and situation. He is verbal and conversational. Does not appear to be in any acute distress. VITAL SIGNS: Temperature is 96.9, pulse 73, respirations 18, blood pressure 125/70, oxygen saturation 96% on room air. SKIN: Warm and dry. No rashes. He is not diaphoretic. HEENT: Pupils equal, round, reactive to light and accommodation. Conjunctivae are pink. There is no evidence of JVD. CVS: Heart is regular. No murmurs or rub. CHEST: Expiratory wheezes noted throughout both lung callahan, but air is moving throughout. ABDOMEN: Soft, nontender, nondistended. BACK: No CVA tenderness or sacral edema. EXTREMITIES: No clubbing, cyanosis or edema. PSYCHIATRIC: Appropriate affect, pleasant mood. HISTORY OF PRESENT ILLNESS: The patient is a 22-year-old male with a past medical history of tobacco dependency, as well as asthma. The patient presented to the emergency department with a chief complaint of shortness of breath. The patient stated that he was not feeling well and felt feverish for over 1 to 2 weeks. The patient had been using meds at home, taking some amoxicillin that he had laying around. The patient smoked some marijuana because he thought it might help him feel better, but none of those things helped. The patient also noted chest tightness and felt as though he was working with only 1 lung, so he came into the emergency department. The patient was found to be hypoxic, with sats in the 80s on room air. The patient was wheezing and was referred to the hospitalist for admission and management. HOSPITAL COURSE: Patient was admitted to the medical unit. The patient underwent CTA and findings were suggestive of pneumonia. The patient was placed on coverage with doxycycline, and the patient had significant improvement of symptoms, and began producing a very large amount of sputum. The patient denied any bleeding or red streaking in the sputum. The patient benefited with a flutter valve, and the patient's ABG improved significantly. The patient is able to fully complete sentences and has been off oxygen for greater than 36 hours. The patient has had no further episodes of fever. No nausea, vomiting or diarrhea, and the patient feels good for discharge. DISCHARGE PLAN: The patient will follow with the [facility] within 1 to 2 weeks for hospital followup. Time spent on this discharge, including assessment, plan, physical examination, patient education and review of records is 25 minutes. DICTATING PHYSICIAN: FRANDY RAMÍREZ NP [id number] [facility]#: [id number] 2006 ID: [id number] JOB#: [id number] ACCT: [id number] cc:Asa ROMERO NP >
== END 2018-02-15 15:06 | disposition home or self-care (01) | DRG 189 ==
LOC: ER 08:12 → EH 10:06 → 4W 12:20 → 4N 14:04
PROVIDERS: ADMIT Internal Medicine; ATTEND Internal Medicine
DX: J96.01 Acute respiratory failure with hypoxia (principal); J18.1 Lobar pneumonia, unspecified organism; J45.51 Severe persistent asthma with (acute) exacerbation; R00.0 Tachycardia, unspecified; F12.90 Cannabis use, unspecified, uncomplicated; F17.210 Nicotine dependence, cigarettes, uncomplicated; Z71.6 Tobacco abuse counseling
CPT/HCPCS: 36415; 36600; 71045; 71275; 80048; 80053; 80307; 81001; 82550; 82553; 82803; 83036; 84439; 84443; 84481; 84484; 85025; 85027; 87040; 87070; 87077; 87205; 93005; 93010; 94640; 96365; 96375; 99291; J0696; J1200; J1650; J2930; J3490; J7512; J7620

== ENCOUNTER 2018-04-04 09:06 | Inpatient (IN) | payer OTHER ==
[2018-04-04] MEDS ORDERED: IPRATROPIUM/ALBUTEROL 0.5-2.5 MG/3 ML AMPUL NEB ONE ×2 (09:19→09:33)
[2018-04-04] MEDS ORDERED: METHYLPREDNISOLONE INJ 125 MG/2 ML SDV IV ONE (09:32)
[2018-04-04] MEDS ORDERED: NORMAL SALINE 1000 ML 1,000 ML IV ONE (09:34)
[2018-04-04 09:46] LABS: ABSOLUTE BASOPHILS # (AUTO) 0.1 10^3/uL (0.0-0.2); ABSOLUTE EOSINOPHILS # (AUTO) 2.5 10^3/uL (0.0-0.6); ABSOLUTE LYMPHOCYTES (AUTO) 1.6 10^3/uL (0.5-4.7); ABSOLUTE MONOCYTES (AUTO) 1.1 10^3/uL (0.1-1.4); ABSOLUTE NEUT (AUTO) 10.6 10^3/uL (1.7-8.2); BASOPHILS % (AUTO) 0.4 % (0-2); HEMATOCRIT 50.9 % (37.9-51.0); HEMOGLOBIN 17.7 g/dL (13.5-17.0); LYMPHOCYTES % (AUTO) 9.8 % (13-45); MEAN CORPUSCULAR HEMOGLOBIN 30.7 pg (27.0-33.4); MEAN CORPUSCULAR HGB CONC 34.8 g/dL (32.0-36.0); MEAN CORPUSCULAR VOLUME 88 fl (80-97); MONOCYTES % (AUTO) 6.9 % (3-13); PLATELET COUNT 278 10^3/uL (150-450); RED BLOOD COUNT 5.77 10^6/uL (4.35-5.55); RED CELL DISTRIBUTION WIDTH 13.5 % (11.5-14.0); SEGMENTED NEUTROPHILS % (AUTO) 66.9 % (42-78); TOTAL CELLS COUNTED % (AUTO) 100 %; WHITE BLOOD COUNT 15.9 10^3/uL (4.0-10.5)
[2018-04-04] MEDS: MAGNESIUM SULFATE/D5W 1 GM/100 ML RTUPB IV SCH ×2 (09:48→10:00)
[2018-04-04] MEDS: ALBUTEROL SULFATE 0.083% NEB 2.5 MG/3 ML AMPUL NEB SCH ×3 (09:48→12:43)
--- NOTE | 2018-04-04 10:04 | RADIOLOGY REPORT (SQ) ---
EXAM DESCRIPTION: CHEST SINGLE VIEW COMPLETED DATE/TIME: 04/04/2018 9:43 am REASON FOR STUDY: Dyspnea COMPARISON: None. EXAM PARAMETERS: NUMBER OF VIEWS: One view. TECHNIQUE: Single frontal radiographic view of the chest acquired. RADIATION DOSE: NA LIMITATIONS: None. FINDINGS: LUNGS AND PLEURA: No acute infiltrates or effusions. MEDIASTINUM AND HILAR STRUCTURES: No masses. Contour normal. HEART AND VASCULAR STRUCTURES: The heart is normal. The pulmonary vasculature is normal. BONES: No acute findings. HARDWARE: None in the chest. OTHER: Chest leads in place. . IMPRESSION: NO ACUTE DISEASE . TECHNICAL DOCUMENTATION: JOB ID: [id number] 2010 [employer]- All Rights Reserved Reading location - IP/workstation name: [email or web address]
[2018-04-04 10:05] LABS: ALANINE AMINOTRANSFERASE 31 U/L (21-72); ALBUMIN 4.2 g/dL (3.5-5.0); ALKALINE PHOSPHATASE 86 U/L (38-126); ANION GAP 15 (5-19); ASPARTATE AMINO TRANSFERASE 27 U/L (17-59); BILIRUBIN,DIRECT 0.2 mg/dL (0.0-0.4); BILIRUBIN,TOTAL 0.7 mg/dL (0.2-1.3); BLOOD UREA NITROGEN 9 mg/dL (7-20); CALCIUM 9.8 mg/dL (8.4-10.2); CARBON DIOXIDE 22 mmol/L (22-30); CHLORIDE 107 mmol/L (98-107); GLUCOSE 96 mg/dL (75-110); POTASSIUM 4.6 mmol/L (3.6-5.0); SODIUM 143.5 mmol/L (137-145); TOTAL PROTEIN 6.9 g/dL (6.3-8.2)
[2018-04-04 11:29] LABS: ARTERIAL BLOOD BASE EXCESS -3.2 mmol/L; ARTERIAL BLOOD FIO2 30%; ARTERIAL BLOOD H2CO3 1.16 mmol/L (1.05-1.35); ARTERIAL BLOOD HCO3 21.7 mmol/L (20-26); ARTERIAL BLOOD O2 SATURATION 96.8 % (94-98); ARTERIAL BLOOD PCO2 38.5 mmHg (35-45); ARTERIAL BLOOD PH 7.37 (7.35-7.45); ARTERIAL BLOOD PO2 91.6 mmHg (80-100); ARTERIAL BLOOD TOTAL CO2 22.8 mmol/L (23-27)
--- NOTE | 2018-04-04 11:40 | ER Document Report ---
ED General - General Chief Complaint: Breathing Difficulty Stated Complaint: DIFFICULTY BREATHING Time Seen by Provider: 04/04/18 09:23 TRAVEL OUTSIDE OF THE [place] IN LAST 30 DAYS: No - HPI Notes: 22-year-old male asthmatic who is largely noncompliant with his asthma regimen presents with difficulty breathing. Patient presents as a walkup, severe dyspnea wheezing. Gradual onset last several days markedly worse today. Cough but no fever. Otherwise history is limited by patient clinical condition. No other modifying factors, no other associated symptoms, no other provocative or palliative factors. - Related Data Allergies/Adverse Reactions: iodine Allergy (Verified 04/04/18 09:07) seafood Allergy (Uncoded 04/04/18 09:07) Past Medical History - Social History Smoking Status: Current Every Day Smoker Frequency of alcohol use: None Drug Abuse: Marijuana Family History: Reviewed & Not Pertinent Patient has suicidal ideation: No Patient has homicidal ideation: No - Past Medical History Cardiac Medical History: Denies: Hx Pulmonary Embolism Pulmonary Medical History: Reports: Hx Asthma, Hx Respiratory Failure Denies: Hx COPD, Hx Intubation Renal/ Medical History: Denies: Hx Peritoneal Dialysis Psychiatric Medical History: Denies: Hx Depression - Immunizations Hx Diphtheria, Pertussis, Tetanus Vaccination: Yes Review of Systems - Review of Systems Notes: Review of systems as in history of present illness otherwise limited by severe dyspnea Physical Exam - Vital signs Vitals: Temp Pulse Resp BP Pulse Ox 99.1 F 129 H 22 H 136/91 H 86 L 04/04/18 09:13 04/04/18 09:13 04/04/18 09:13 04/04/18 09:13 04/04/18 09:13 - Notes Notes: General: Well developed . HEENT: Normocephalic, atraumatic. Pupils equal round reactive to light. No JVD. Chest: No trauma. Respiratory: Significant increased work of breathing, marked and expiratory wheezing with poor air exchange Cardiac: Regular rhythm. No murmurs or gallops. Abdomen: Soft, benign. Nondistended. Nontender. Back: No asymmetry or gross abnormality. Motor: Grossly normal power and tone. Neurologic: Alert, nonfocal. Cranial nerves II-12 are intact. Sensation intact. Vascular: Well perfused. Normal peripheral pulses. Skin: No petechiae or purpura. Course - Re-evaluation Re-evalutation: 04/04/18 11:42 Ill-appearing male severe dyspnea and status asthmaticus. Resuscitation is initiated. IV access obtained. Patient received aggressive IV magnesium, bronchodilator therapy, IV Solu-Medrol. He is placed on continuous albuterol. With aggressive therapy is improved somewhat but then acutely decompensated requiring BiPAP. He is now significantly improved from previous. Review of labs show unremarkable CBC with except for mild leukocytosis, likely physiologic stress response. Chemistries are normal. ABG is reassuring. Chest x-ray shows no infiltrate. Patient will be admitted to the hospitalist service for continued evaluation and management. 12 Lead ECG Analysis A 12 lead ECG is obtained and shows a sinus rhythm, normal QRS, normal QTC. There are nonspecific ST-T changes, no evidence of acute ischemic changes. Critical Care Note Greater than 35 minutes of critical care time was spent with this patient. This includes serial evaluation of the patient as well as labs, radiographs and EKGs; discussion of the case with consultants and admitting physician. This does not include time spent performing procedures. - Vital Signs Vital signs: Temp Pulse Resp BP Pulse Ox 99.1 F 137 H 24 H 129/86 H 96 04/04/18 09:13 04/04/18 10:48 04/04/18 11:01 04/04/18 11:01 04/04/18 11:01 - Laboratory Result Diagrams: 04/04/18 09:20 04/04/18 09:20 Laboratory results interpreted by me: 04/04/18 04/04/18 09:20 11:08 WBC 15.9 H RBC 5.77 H Hgb 17.7 H Lymphocytes % 9.8 L Eosinophils % 16.0 H Absolute Neutrophils 10.6 H Absolute Eosinophils 2.5 H ABG Total CO2 22.8 L Discharge - Discharge Clinical Impression: Status asthmaticus Qualifiers: Asthma severity: severe Asthma persistence: persistent Qualified Code(s): J45.52 - Severe persistent asthma with status asthmaticus Condition: Serious Disposition: ADMITTED OBSERVATION Admitting Provider: Hospitalist Unit Admitted: Telemetry
[2018-04-04] MEDS ORDERED: DEXTROSE 50%-WATER 25 GM/50 ML DISP.SYRIN IV PRN ×2 (12:39)
[2018-04-04] MEDS ORDERED: GLUCAGON,HUMAN RECOMB 1 MG INJ SUBCUT PRN (12:39)
[2018-04-04] MEDS ORDERED: DEXTROSE 40% GEL 15 GM TUBE PO PRN ×2 (12:39)
[2018-04-04] MEDS: HEPARIN SOD (PORCINE) 5,000 UNIT/ML 1 ML SYRINGE SUBCUT SCH ×2 (14:40→22:25)
[2018-04-04] MEDS: IPRATROPIUM/ALBUTEROL 0.5-2.5 MG/3 ML AMPUL NEB PRN ×3 (15:37→23:45)
[2018-04-04] MEDS: METHYLPREDNISOLONE INJ 40 MG/1 ML SDV IV SCH (17:07)
--- NOTE | 2018-04-04 17:37 | PDOC H&P ---
History of Present Illness Admission Date/PCP: 04/04/18 12:34 Patient complains of: SOB History of Present Illness: FRANDY HANSEN is a 22 year old male with no significant past medical history aside from a history of bronchial asthma who presented with shortness of breath. Patient says that he has been having mild but increasing shortness of breath in the past 3-4 days. Patient has been watching over 1 of the patients on the floor as he is the patient's fianc. He woke up early this morning beisde the patient and was severely dyspneic. she was brought down to the ER where his saturation was noted to be 85% on room air. He was also noted to have diffuse wheezing. He was given breathing treatments and IV steroids. He was placed on BIPAP and was still short of breath. He says he ran out of his inhalers as he can't afford them. He denies any productive cough. No fever or chills. Past Medical History Cardiac Medical History: Reports: None Denies: Pulmonary Embolism Pulmonary Medical History: Reports: Asthma, Respiratory Failure Denies: Chronic Obstructive Pulmonary Disease (COPD), Intubation EENT Medical History: Reports: None Renal/ Medical History: Reports: None Malignancy Medical History: Reports: None GI Medical History: Reports: None Musculoskeltal Medical History: Reports: None Psychiatric Medical History: Reports: None Denies: Depression Traumatic Medical History: Reports: None Hematology: Reports: None Social History Smoking Status: Former Smoker Cigarettes Packs Per Day: 0.5 Number of Years Smokin Last Time Smoked: 03/31/18 Frequency of Alcohol Use: Rare Hx Recreational Drug Use: Yes Drugs: Marijuana Hx Prescription Drug Abuse: No Family History Family History: Reviewed & Not Pertinent Medication/Allergy Home Medications: Albuterol Sulfate [Albuterol Sulfate 2.5mg/3 mL] 3 ml NEB Q6HP PRN 04/04/18 Albuterol Sulfate [Proair HFA Inhalation Aerosol 8.5 gm MDI] 2 puff IH Q4HP PRN 04/04/18 Budesonide/Formoterol Fumarate [Symbicort 160-4.5 Mcg Inhaler] 2 puff IH Q12 01/15 Loratadine [Claritin 10 mg Tablet] 10 mg PO DAILY 04/04/18 Allergies/Adverse Reactions: iodine Allergy (Verified 04/04/18 09:07) seafood Allergy (Uncoded 04/04/18 09:07) Physical Exam Vital Signs: Temp Pulse Resp BP Pulse Ox 97.2 F 113 H 13 129/76 H 97 04/04/18 15:10 04/04/18 15:37 04/04/18 15:37 04/04/18 15:10 04/04/18 15:37 Intake & Output 04/03/18 04/04/18 04/05/18 06:59 06:59 06:59 Weight 210 lb 1.608 oz General appearance: PRESENT: other - Patient in moderate respiratory distress with use of accessory muscles. Head exam: PRESENT: atraumatic, normocephalic Eye exam: PRESENT: conjunctiva pink, EOMI, PERRLA. ABSENT: scleral icterus Neck exam: ABSENT: carotid bruit, JVD, lymphadenopathy, thyromegaly Respiratory exam: PRESENT: accessory muscle use, decreased breath sounds, rhonchi, tachypnea, wheezes Cardiovascular exam: PRESENT: tachycardia Pulses: PRESENT: normal dorsalis pedis pul Vascular exam: PRESENT: normal capillary refill GI/Abdominal exam: PRESENT: normal bowel sounds, soft. ABSENT: distended, guarding, mass, organolmegaly, rebound, tenderness Neurological exam: PRESENT: alert, awake, oriented to person, oriented to place , oriented to time, oriented to situation, CN II-XII grossly intact. ABSENT: motor sensory deficit Skin exam: PRESENT: dry, intact, warm. ABSENT: cyanosis, rash Results Impressions: Chest X-Ray 04/04/18 09:33 IMPRESSION: NO ACUTE DISEASE . Assessment & Plan - Diagnosis (1) Acute hypoxemic respiratory failure Is this a current diagnosis for this admission?: Yes Plan: Patient is acute hypoxic ischemic respiratory failure secondary to severe asthma exacerbation. Patient is currently on BiPAP. He says his breathing is slightly better after being placed on BiPAP and after multiple breathing treatments. Will continue patient on IV steroids. Continue DuoNeb every 4 hours scheduled. Chest x-ray is unremarkable for any infiltrate or acute changes. - Time Critical Time spent with patient: 25-34 minutes - Inpatient Certification Medical Necessity: Need for Nebulizer Therapy and Monitoring of Response, Risk of Complication if Not Cared For in Hospital
[2018-04-05] MEDS: METHYLPREDNISOLONE INJ 40 MG/1 ML SDV IV SCH ×4 (02:26→23:03)
[2018-04-05] MEDS: HEPARIN SOD (PORCINE) 5,000 UNIT/ML 1 ML SYRINGE SUBCUT SCH ×3 (05:40→23:02)
[2018-04-05] MEDS: IPRATROPIUM/ALBUTEROL 0.5-2.5 MG/3 ML AMPUL NEB PRN ×3 (05:43→16:24)
--- NOTE | 2018-04-05 13:24 | PDOC PROGRESS REPORT ---
Subjective Progress Note for:: 04/05/18 Subjective:: Mr. Valdes was admitted yesterday for severe asthma exacerbation. He was persistently tachypneic despite being continuous breathing treatments and IV steroid in the ER yesterday. He was on BIPAP last night. This morning, patient is saturating well on nasal cannula. He says he is still a little short of breath but feels much better compared yesterday. He has minimally productive cough. No fever or chills. He has bilateral wheezing which has improved from yesterday. Reason For Visit: ASTHMA EXACERBATION,ACUTE HYPOXIC RESPIRATORY Physical Exam Vital Signs: Temp Pulse Resp BP Pulse Ox 98.6 F 122 H 18 134/65 H 93 04/05/18 11:17 04/05/18 11:17 04/05/18 11:17 04/05/18 11:17 04/05/18 11:17 Intake & Output 04/04/18 04/05/18 04/06/18 06:59 06:59 06:59 Intake Total 765 Balance 765 Weight 209 lb 7.026 oz General appearance: PRESENT: no acute distress, well-developed, well-nourished Head exam: PRESENT: atraumatic, normocephalic Eye exam: PRESENT: conjunctiva pink, EOMI, PERRLA. ABSENT: scleral icterus Ear exam: PRESENT: normal external ear exam Neck exam: ABSENT: carotid bruit, JVD, lymphadenopathy, thyromegaly Respiratory exam: PRESENT: rhonchi, wheezes Cardiovascular exam: PRESENT: RRR. ABSENT: diastolic murmur, rubs, systolic murmur Pulses: PRESENT: normal dorsalis pedis pul GI/Abdominal exam: PRESENT: normal bowel sounds, soft. ABSENT: distended, guarding, mass, organolmegaly, rebound, tenderness Neurological exam: PRESENT: alert, awake, oriented to person, oriented to place , oriented to time, oriented to situation, CN II-XII grossly intact. ABSENT: motor sensory deficit Skin exam: PRESENT: dry, intact, warm. ABSENT: cyanosis, rash Results Impressions: Chest X-Ray 04/04/18 09:33 IMPRESSION: NO ACUTE DISEASE . Assessment & Plan - Diagnosis (1) Acute hypoxemic respiratory failure Is this a current diagnosis for this admission?: Yes Plan: Patient presented with acute hypoxic ischemic respiratory failure secondary to severe asthma exacerbation. Initial sats was 85% in the ER. He has been off the BIPAP this morning. Saturating well on nasal cannula. Chest x-ray is unremarkable for any infiltrate or acute changes. Continue DuoNeb every 4 hours scheduled. Continues to have bilateral wheezing albeit significantly better from yesterday. Decrease solumedrol to 40 mg bid. He will be discharged on oral steroids for a few days. His exacerbation is likely due to noncompliance to his Symbicort and Proair as he can't afford to buy his home inhalers. Discharge planning has been consulted to assist patient. - Time Time Spent with patient: 15-24 minutes
[2018-04-06] MEDS: HEPARIN SOD (PORCINE) 5,000 UNIT/ML 1 ML SYRINGE SUBCUT SCH ×2 (06:31→13:55)
[2018-04-06 09:49] LABS: ABSOLUTE BASOPHILS # (AUTO) 0.1 10^3/uL (0.0-0.2); ABSOLUTE LYMPHOCYTES (AUTO) 1.5 10^3/uL (0.5-4.7); ABSOLUTE MONOCYTES (AUTO) 0.7 10^3/uL (0.1-1.4); ABSOLUTE NEUT (AUTO) 9.4 10^3/uL (1.7-8.2); BASOPHILS % (AUTO) 0.4 % (0-2); EOSINOPHILS % (AUTO) 0.2 % (0-6); HEMATOCRIT 45.8 % (37.9-51.0); LYMPHOCYTES % (AUTO) 12.8 % (13-45); MEAN CORPUSCULAR HEMOGLOBIN 30.3 pg (27.0-33.4); MEAN CORPUSCULAR HGB CONC 34.1 g/dL (32.0-36.0); MEAN CORPUSCULAR VOLUME 89 fl (80-97); MONOCYTES % (AUTO) 6.2 % (3-13); PLATELET COUNT 300 10^3/uL (150-450); RED BLOOD COUNT 5.16 10^6/uL (4.35-5.55); RED CELL DISTRIBUTION WIDTH 13.7 % (11.5-14.0); SEGMENTED NEUTROPHILS % (AUTO) 80.4 % (42-78); TOTAL CELLS COUNTED % (AUTO) 100 %; WHITE BLOOD COUNT 11.8 10^3/uL (4.0-10.5)
[2018-04-06 10:05] LABS: ALANINE AMINOTRANSFERASE 36 U/L (21-72); ALBUMIN 3.8 g/dL (3.5-5.0); ALKALINE PHOSPHATASE 74 U/L (38-126); ANION GAP 12 (5-19); ASPARTATE AMINO TRANSFERASE 21 U/L (17-59); BILIRUBIN,DIRECT 0.2 mg/dL (0.0-0.4); BILIRUBIN,TOTAL 0.4 mg/dL (0.2-1.3); BLOOD UREA NITROGEN 16 mg/dL (7-20); CALCIUM 9.5 mg/dL (8.4-10.2); CARBON DIOXIDE 24 mmol/L (22-30); CHLORIDE 106 mmol/L (98-107); GLUCOSE 113 mg/dL (75-110); PHOSPHORUS 3.9 mg/dL (2.5-4.5); POTASSIUM 4.3 mmol/L (3.6-5.0); SODIUM 141.6 mmol/L (137-145); TOTAL PROTEIN 6.2 g/dL (6.3-8.2)
[2018-04-06 10:11] LABS: HEMOGLOBIN 15.6 g/dL (13.5-17.0)
[2018-04-06 10:21] LABS: FREE T4 (FREE THYROXINE) 1.41 ng/dL (0.78-2.19)
[2018-04-06] MEDS: METHYLPREDNISOLONE INJ 40 MG/1 ML SDV IV SCH ×2 (10:30→23:07)
[2018-04-06 10:35] LABS: THYROID STIMULATING HORMONE 0.43 uIU/mL (0.47-4.68)
[2018-04-06] MEDS: IPRATROPIUM/ALBUTEROL 0.5-2.5 MG/3 ML AMPUL NEB PRN ×2 (11:36→20:45)
[2018-04-06] MEDS ORDERED: DIPHENHYDRAMINE HCL 50 MG/ML VIAL IV ONE (18:15)
--- NOTE | 2018-04-06 18:15 | PDOC PROGRESS REPORT ---
Subjective Progress Note for:: 04/06/18 Subjective:: pt is a 22 y/o wm admitted for sob and asthma exacerbation. pt has been on steroids and nebulizer treatment. pt states he does not feel well and last time he felt like this he had a pneumonia. pt does not have primary care . has quit smoking he is bringing up purulent sputum. Reason For Visit: ASTHMA Physical Exam Vital Signs: Temp Pulse Resp BP Pulse Ox 97.8 F 107 H 18 123/73 86 L 04/06/18 07:53 04/06/18 07:53 04/06/18 07:53 04/06/18 07:53 04/06/18 07:53 Intake & Output 04/05/18 04/06/18 04/07/18 06:59 06:59 06:59 Intake Total 765 1150 Balance 765 1150 Weight 209 lb 7.026 oz 211 lb 13.828 oz General appearance: PRESENT: cooperative Respiratory exam: PRESENT: rhonchi - all throughout lung field., wheezes Cardiovascular exam: PRESENT: RRR Results Impressions: Chest X-Ray 04/04/18 09:33 IMPRESSION: NO ACUTE DISEASE . Assessment & Plan - Diagnosis (1) Asthma exacerbation Qualifiers: Asthma severity: severe Asthma persistence: persistent Qualified Code(s) : J45.51 - Severe persistent asthma with (acute) exacerbation Is this a current diagnosis for this admission?: Yes Plan: we change to medrol dose pack taper in house. get stat ct chest to rule out any pneumonia or Interstitial lung disease. (2) Wheezing on both sides of chest Is this a current diagnosis for this admission?: No Plan: ct chest to identify any interstitial lung disease. continue steroids and nebulizer. 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
--- NOTE | 2018-04-06 18:47 | RADIOLOGY REPORT (SQ) ---
EXAM DESCRIPTION: CT CHEST WITH COMPLETED DATE/TIME: 04/06/2018 6:35 pm REASON FOR STUDY: wheezing/ purulent sputum / asthma/ eosinophilia. COMPARISON: None. TECHNIQUE: CT scan of the chest performed using helical scanning technique with dynamic intravenous contrast injection. Images reviewed with lung, soft tissue and bone windows. Reconstructed coronal and sagittal MPR images reviewed. All images stored on PACS. All CT scanners at this facility use dose modulation, iterative reconstruction, and/or weight based d osing when appropriate to reduce radiation dose to as low as reasonably achievable (ALARA). [facility]: Dose Right [facility]: CareDose [facility]: Dose Right [facility]: Teradose 4D [facility]: Play Megaphone CONTRAST TYPE AND DOSE: contrast/concentration: Isovue 350.00 mg/ml; Total Contrast Delivered: 80.0 ml; Total Saline Delivered: 55.0 ml RENAL FUNCTION: BUN 16 creatinine 0.67. RADIATION DOSE: CT Rad equipment meets quality standard of care and radiation dose reduction techniq ues were employed. CTDIvol: 11.0 mGy. DLP: 464 mGy-cm. . LIMITATIONS: None. FINDINGS: LUNGS AND PLEURA: Patchy airspace disease with faint scattered ground-glass opacities. No lobar infiltrate. No pulmonary nodules or masses. No pneumothorax. No effusions. HILAR AND MEDIASTINAL STRUCTURES: No identified masses or abnormal nodes. HEART AND VASCULAR STRUCTURES: No aneurysm or dissection. No central pulmonary emboli. No pericardi al effusion. HARDWARE: None in the chest. UPPER ABDOMEN: No significant findings. Limited exam. THYROID AND OTHER SOFT TISSUES: No masses. No adenopathy. BONES: No significant finding. OTHER: No other significant finding. IMPRESSION: PATCHY AIRSPACE DISEASE WITH SCATTERED GROUND-GLASS OPACITIES. POSSIBLE ETIOLOGIES INCL UDE INFLAMMATION, PNEUMONITIS, OR INFECTION. TECHNICAL DOCUMENTATION: JOB ID: [id number] Quality ID # [id number]: Final reports with documentation of one or more dose reduction techniques (e.g., Au tomated exposure control, adjustment of the mA and/or kV according to patient size, use of iterative reconstruction technique) 2010 [employer]- All Rights Reserved Reading location - IP/workstation name: [email or web address]
[2018-04-07] MEDS: HEPARIN SOD (PORCINE) 5,000 UNIT/ML 1 ML SYRINGE SUBCUT SCH ×3 (08:00→22:22)
[2018-04-07] MEDS ORDERED: METHYLPREDNISOLONE DOSEPAK (4 MG/TAB) 21 TAB/DSPK PO PRN (08:13)
[2018-04-07] MEDS: IPRATROPIUM/ALBUTEROL 0.5-2.5 MG/3 ML AMPUL NEB PRN ×2 (09:16→17:10)
[2018-04-07] MEDS: AZITHROMYCIN 500 MG in DEXTROSE 5%-WATER 250 ML IV SCH (09:33)
[2018-04-07] MEDS ORDERED: CEFTRIAXONE 1 GM/D5W RTU 1 GM/50 ML RTUPB IV SCH (10:00)
[2018-04-07 10:28] LABS: ABSOLUTE LYMPHOCYTES (AUTO) 1.9 10^3/uL (0.5-4.7); ABSOLUTE MONOCYTES (AUTO) 0.6 10^3/uL (0.1-1.4); ABSOLUTE NEUT (AUTO) 4.6 10^3/uL (1.7-8.2); BASOPHILS % (AUTO) 0.2 % (0-2); EOSINOPHILS % (AUTO) 0.3 % (0-6); HEMATOCRIT 43.4 % (37.9-51.0); HEMOGLOBIN 14.8 g/dL (13.5-17.0); LYMPHOCYTES % (AUTO) 27.1 % (13-45); MEAN CORPUSCULAR HEMOGLOBIN 30.3 pg (27.0-33.4); MEAN CORPUSCULAR HGB CONC 34.2 g/dL (32.0-36.0); MEAN CORPUSCULAR VOLUME 89 fl (80-97); MONOCYTES % (AUTO) 7.8 % (3-13); PLATELET COUNT 228 10^3/uL (150-450); RED BLOOD COUNT 4.89 10^6/uL (4.35-5.55); RED CELL DISTRIBUTION WIDTH 13.4 % (11.5-14.0); SEGMENTED NEUTROPHILS % (AUTO) 64.6 % (42-78); TOTAL CELLS COUNTED % (AUTO) 100 %; WHITE BLOOD COUNT 7.1 10^3/uL (4.0-10.5)
[2018-04-07] MEDS: CEFTRIAXONE SODIUM 1,000 MG in NORMAL SALINE 50 ML IV SCH (11:12)
[2018-04-07] MEDS ORDERED: MEDROL DOSEPAK (DAY 1 LUNCH & SUPPER) (EDIT AFTER 0800) PO SCH ×2 (13:00→18:00)
[2018-04-07] MEDS ORDERED: MEDROL DOSEPAK (DAY 1 BRKFST) (EDIT AFTER 0800) PO ONE (14:30)
[2018-04-07 16:15] LABS: ALANINE AMINOTRANSFERASE 32 U/L (21-72); ALBUMIN 3.3 g/dL (3.5-5.0); ALKALINE PHOSPHATASE 56 U/L (38-126); ANION GAP 13 (5-19); ASPARTATE AMINO TRANSFERASE 15 U/L (17-59); BILIRUBIN,DIRECT 0.2 mg/dL (0.0-0.4); BILIRUBIN,TOTAL 0.3 mg/dL (0.2-1.3); BLOOD UREA NITROGEN 14 mg/dL (7-20); CALCIUM 8.8 mg/dL (8.4-10.2); CARBON DIOXIDE 24 mmol/L (22-30); CHLORIDE 104 mmol/L (98-107); GLUCOSE 109 mg/dL (75-110); POTASSIUM 4.3 mmol/L (3.6-5.0); SODIUM 140.7 mmol/L (137-145); TOTAL PROTEIN 5.5 g/dL (6.3-8.2)
[2018-04-07] MEDS: METHYLPREDNISOLONE INJ 40 MG/1 ML SDV IV SCH ×2 (17:15→22:22)
[2018-04-07] MEDS ORDERED: MEDROL DOSEPAK (DAY 1 BEDTIME DOSE) (EDIT AFTER 0800) PO SCH (22:00)
[2018-04-08] MEDS: METHYLPREDNISOLONE INJ 40 MG/1 ML SDV IV SCH ×2 (06:31→14:59)
[2018-04-08] MEDS: HEPARIN SOD (PORCINE) 5,000 UNIT/ML 1 ML SYRINGE SUBCUT SCH ×2 (06:31→15:03)
[2018-04-08] MEDS ORDERED: MEDROL DOSEPAK (DAY 1 BRKFST) (EDIT AFTER 0800) PO SCH (08:00)
[2018-04-08] MEDS ORDERED: MEDROL DOSEPAK (DAY 2 BRKFST, LUNCH, SUPPER) PO SCH (08:00)
[2018-04-08] MEDS: AZITHROMYCIN 500 MG in DEXTROSE 5%-WATER 250 ML IV SCH (09:58)
[2018-04-08] MEDS: CEFTRIAXONE SODIUM 1,000 MG in NORMAL SALINE 50 ML IV SCH (11:47)
[2018-04-08 12:58] LABS: ABSOLUTE LYMPHOCYTES (AUTO) 1.3 10^3/uL (0.5-4.7); ABSOLUTE NEUT (AUTO) 7.5 10^3/uL (1.7-8.2); BASOPHILS % (AUTO) 0.4 % (0-2); EOSINOPHILS % (AUTO) 0.1 % (0-6); HEMOGLOBIN 14.9 g/dL (13.5-17.0); LYMPHOCYTES % (AUTO) 12.8 % (13-45); MEAN CORPUSCULAR HEMOGLOBIN 29.8 pg (27.0-33.4); MEAN CORPUSCULAR HGB CONC 33.9 g/dL (32.0-36.0); MEAN CORPUSCULAR VOLUME 88 fl (80-97); MONOCYTES % (AUTO) 10.3 % (3-13); PLATELET COUNT 288 10^3/uL (150-450); RED CELL DISTRIBUTION WIDTH 13.4 % (11.5-14.0); SEGMENTED NEUTROPHILS % (AUTO) 76.4 % (42-78); TOTAL CELLS COUNTED % (AUTO) 100 %; WHITE BLOOD COUNT 9.8 10^3/uL (4.0-10.5)
--- NOTE | 2018-04-08 13:23 | PDOC PROGRESS REPORT ---
Subjective Progress Note for:: 04/07/18 Reason For Visit: ASTHMA Physical Exam Vital Signs: Temp Pulse Resp BP Pulse Ox 97.8 F 69 17 136/68 H 96 04/07/18 04:00 04/07/18 04:00 04/07/18 04:00 04/07/18 04:00 04/07/18 04:00 Intake & Output 04/06/18 04/07/18 04/08/18 06:59 06:59 06:59 Intake Total 1150 1850 Balance 1150 1850 Weight 211 lb 13.828 oz 211 lb 3.245 oz Results Laboratory Results: 04/06/18 09:27 04/06/18 09:27 04/06/18 04/06/18 04/06/18 09:27 09:27 09:27 WBC 11.8 H RBC 5.16 Hgb 15.6 D Hct 45.8 MCV 89 MCH 30.3 MCHC 34.1 RDW 13.7 Plt Count 300 Seg Neutrophils % 80.4 H Lymphocytes % 12.8 L Monocytes % 6.2 Eosinophils % 0.2 Basophils % 0.4 Absolute Neutrophils 9.4 H Absolute Lymphocytes 1.5 Absolute Monocytes 0.7 Absolute Eosinophils 0.0 Absolute Basophils 0.1 Sodium 141.6 Potassium 4.3 Chloride 106 Carbon Dioxide 24 Anion Gap 12 BUN 16 Creatinine 0.67 Est GFR ( Amer) > 60 Est GFR (Non-Af Amer) > 60 Glucose 113 H Calcium 9.5 Phosphorus 3.9 Magnesium 2.0 Total Bilirubin 0.4 AST 21 ALT 36 Alkaline Phosphatase 74 Total Protein 6.2 L Albumin 3.8 TSH 0.43 L Free T4 1.41 Stool Occult Blood 04/06/18 11:50 WBC RBC Hgb Hct MCV MCH MCHC RDW Plt Count Seg Neutrophils % Lymphocytes % Monocytes % Eosinophils % Basophils % Absolute Neutrophils Absolute Lymphocytes Absolute Monocytes Absolute Eosinophils Absolute Basophils Sodium Potassium Chloride Carbon Dioxide Anion Gap BUN Creatinine Est GFR ( Amer) Est GFR (Non-Af Amer) Glucose Calcium Phosphorus Magnesium Total Bilirubin AST ALT Alkaline Phosphatase Total Protein Albumin TSH Free T4 Stool Occult Blood NEGATIVE Impressions: Chest X-Ray 04/04/18 09:33 IMPRESSION: NO ACUTE DISEASE . Chest CT 04/06/18 00:00 IMPRESSION: PATCHY AIRSPACE DISEASE WITH SCATTERED GROUND-GLASS OPACITIES. POSSIBLE ETIOLOGIES INCLUDE INFLAMMATION, PNEUMONITIS, OR INFECTION. Assessment & Plan - Diagnosis (1) Pneumonia Qualifiers: Pneumonia type: due to unspecified organism Laterality: unspecified laterality Is this a current diagnosis for this admission?: Yes Plan: will treat as community acquired pneumonia.\ suspect pt had underlying infection that precipitated bronchospasm and asthma. (2) Asthma exacerbation Qualifiers: Asthma severity: severe Asthma persistence: persistent Qualified Code(s) : J45.51 - Severe persistent asthma with (acute) exacerbation Is this a current diagnosis for this admission?: Yes Plan: changed to medrol dose pack today. (3) Wheezing on both sides of chest Is this a current diagnosis for this admission?: Yes Plan: attribute to pneumonia. (4) Eosinophilia Is this a current diagnosis for this admission?: Yes
[2018-04-08 13:24] LABS: ALANINE AMINOTRANSFERASE 36 U/L (21-72); ALBUMIN 3.5 g/dL (3.5-5.0); ALKALINE PHOSPHATASE 55 U/L (38-126); ANION GAP 9 (5-19); ASPARTATE AMINO TRANSFERASE 12 U/L (17-59); BLOOD UREA NITROGEN 13 mg/dL (7-20); CALCIUM 9.3 mg/dL (8.4-10.2); CARBON DIOXIDE 26 mmol/L (22-30); CHLORIDE 107 mmol/L (98-107); GLUCOSE 92 mg/dL (75-110); POTASSIUM 4.7 mmol/L (3.6-5.0); SODIUM 142.4 mmol/L (137-145); TOTAL PROTEIN 5.8 g/dL (6.3-8.2)
[2018-04-08 13:26] LABS: BILIRUBIN,TOTAL < 0.1 mg/dL (0.2-1.3)
--- NOTE | 2018-04-08 13:47 | PDOC DISCHARGE SUMMARY ---
General - Admit/Disc Date/PCP Admission Date/Primary Care Provider: 04/04/18 12:34 Discharge Date: 04/08/18 - Discharge Diagnosis (1) Pneumonia Is this a current diagnosis for this admission?: Yes Summary: Patient will be discharged on p.o. antibiotics. Patient will also be discharged on inhalers and steroid taper. 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 Patient also advised to continue inhalers and nebulizers . Patient to start with the counter antihistamines Zyrtec or its generic. (3) Eosinophilia Is this a current diagnosis for this admission?: Yes Summary: Attribute to allergic asthma laceration. Patient is advised to start antihistamine treatment with [id number] Zyrtec. Stool occult is negative. No family history of cancers. - Additional Information Prescriptions: Albuterol Sulfate [Albuterol Sulfate 2.5mg/3 mL] 3 ml NEB Q6HP PRN #120 vial.neb PRN Reason: FOR SHORTNESS OF BREATH Albuterol Sulfate [Proair HFA] 1 - 2 puff IH Q4 PRN 30 Days #2 inhaler PRN Reason: Albuterol Sulfate [Proair HFA Inhalation Aerosol 8.5 gm MDI] 2 puff IH Q4HP PRN #1 hfa.aer.ad PRN Reason: FOR SHORTNESS OF BREATH Azithromycin 250 mg PO DAILY 5 Days #5 tablet Budesonide/Formoterol Fumarate [Symbicort 160-4.5 Mcg Inhaler] 2 puff IH BID 30 Days #2 hfa.aer.ad Budesonide/Formoterol Fumarate [Symbicort 160-4.5 Mcg Inhaler] 2 puff IH Q12 #1 hfa.aer.ad Cefdinir [Omnicef 300 mg Capsule] 1 cap PO BID #14 capsule Ipratropium/Albuterol Sulfate [Duoneb 3 ml Ampul] 3 ml NEB RTQ6 PRN 30 Days #30 vial.neb PRN Reason: Loratadine [Claritin 10 mg Tablet] 10 mg PO DAILY #30 tablet Methylprednisolone [Medrol Dosepack (4 mg/Tab) 21 Tab/Dosepak] 4 mg PO ASDIR PRN #21 tab.ds.pk PRN Reason: Home Medications: Albuterol Sulfate [Proair HFA] 1 - 2 puff IH Q4 PRN 30 Days #2 inhaler 04/05/18 Budesonide/Formoterol Fumarate [Symbicort 160-4.5 Mcg Inhaler] 2 puff IH BID 30 Days #2 hfa.aer.ad 04/05/18 Ipratropium/Albuterol Sulfate [Duoneb 3 ml Ampul] 3 ml NEB RTQ6 PRN 30 Days #30 vial.neb 04/05/18 Albuterol Sulfate [Albuterol Sulfate 2.5mg/3 mL] 3 ml NEB Q6HP PRN #120 vial.neb 04/08/18 Albuterol Sulfate [Proair HFA Inhalation Aerosol 8.5 gm MDI] 2 puff IH Q4HP PRN #1 hfa.aer.ad 04/08/18 Azithromycin 250 mg PO DAILY 5 Days #5 tablet 04/08/18 Budesonide/Formoterol Fumarate [Symbicort 160-4.5 Mcg Inhaler] 2 puff IH Q12 #1 hfa.aer.ad 04/08/18 Cefdinir [Omnicef 300 mg Capsule] 1 cap PO BID #14 capsule 04/08/18 Loratadine [Claritin 10 mg Tablet] 10 mg PO DAILY #30 tablet 04/08/18 Methylprednisolone [Medrol Dosepack (4 mg/Tab) 21 Tab/Dosepak] 4 mg PO ASDIR PRN #21 tab.ds.pk 04/08/18 History of Present Illness History of Present Illness: FRANDY HANSEN is a 22 year old male Hospital Course Hospital Course: Patient is a 22-year-old white male admitted by with complaints of shortness of breath worsening over the past few days prior to his admission. Patient states he had ran out of his inhalers and he cannot afford them. Upon admission patient noted to be hypoxic on room air. He was started on BiPAP. Steroids and nebulizer therapy. Patient was noted to have an elevated white count and purulent sputum and wheezing and rhonchi on auscultation and a stat CT was done Which identified bilateral pneumonia. Patient was started on antibiotic therapy restarted on IV steroids and is doing much better today. Patient denies any chest pain shortness of breath clinically feels better. Plan is for discharge home today. Physical Exam Vital Signs: Temp Pulse Resp BP Pulse Ox 97.6 F 55 L 20 111/51 L 94 04/08/18 12:55 04/08/18 12:55 04/08/18 12:55 04/08/18 12:55 04/08/18 12:55 Intake & Output 04/07/18 04/08/18 04/09/18 06:59 06:59 06:59 Intake Total 1850 2480 Balance 1850 2480 Weight 211 lb 3.245 oz 212 lb 1.355 oz General appearance: PRESENT: no acute distress, cooperative Head exam: PRESENT: atraumatic, normocephalic Eye exam: PRESENT: EOMI Ear exam: PRESENT: normal external ear exam Respiratory exam: PRESENT: clear to auscultation lexy Cardiovascular exam: PRESENT: RRR GI/Abdominal exam: PRESENT: soft. ABSENT: guarding, tenderness Neurological exam: PRESENT: alert, awake, CN II-XII grossly intact Results Laboratory Results: 04/08/18 12:44 04/07/18 04/08/18 15:47 12:44 WBC 9.8 RBC 5.00 Hgb 14.9 Hct 44.0 MCV 88 MCH 29.8 MCHC 33.9 RDW 13.4 Plt Count 288 Seg Neutrophils % 76.4 Lymphocytes % 12.8 L Monocytes % 10.3 Eosinophils % 0.1 Basophils % 0.4 Absolute Neutrophils 7.5 Absolute Lymphocytes 1.3 Absolute Monocytes 1.0 Absolute Eosinophils 0.0 Absolute Basophils 0.0 Sodium 140.7 Potassium 4.3 Chloride 104 Carbon Dioxide 24 Anion Gap 13 BUN 14 Creatinine 0.82 Est GFR ( Amer) > 60 Est GFR (Non-Af Amer) > 60 Glucose 109 Calcium 8.8 Total Bilirubin 0.3 AST 15 L ALT 32 Alkaline Phosphatase 56 Total Protein 5.5 L Albumin 3.3 L Impressions: Chest X-Ray 04/04/18 09:33 IMPRESSION: NO ACUTE DISEASE . Chest CT 04/06/18 00:00 IMPRESSION: PATCHY AIRSPACE DISEASE WITH SCATTERED GROUND-GLASS OPACITIES. POSSIBLE ETIOLOGIES INCLUDE INFLAMMATION, PNEUMONITIS, OR INFECTION. Qualifiers - * PATIENT BEING DISCHARGED WITH ANY OF THE FOLLOWING DIAGNOSIS: No VTE patient discharged on overlapping Therapy?: No Reason(s) for not prescribing Overlap Therapy:: Not indicated Reason(s) for not prescribing Anti-thrombolytic therapy:: Not indicated Reason(s) for not prescribing Anti-coagulation therapy:: Not indicated Reason(s) for not prescribing Statins therapy:: Not indicated RI Pt being discharged on Aspirin therapy?: No Reason(s) for not prescribing Aspirin therapy:: Not indicated RI Pt being discharged on Statins?: No Reason(s) for not prescribing Statin therapy:: Not indicated RI Pt discharged ACEI/ARBS?: No Reason(s) for not prescribing ACEI/ARBS:: Not indicated HF Pt being discharged on ACEI for LVEF less than 40%?: No Reason(s) for not prescribing ACEI:: Not indicated HF Pt being discharged on ARBS for LVEF less than 40%?: No Reason(s) for not prescribing ARBS:: Not indicated HF Pt with Afib discharged with Warfarin?: No Reason(s) for not prescribing Warfarin:: Not indicated HF Pt discharged on evidence-based Beta Betsy:: No Reason(s) for not prescribing evidence-based Beta Betsy:: Not indicated Plan Time Spent: Less than 30 Minutes
[2018-04-08 15:36] VITALS: BP 129/76
[2018-04-08] MEDS ORDERED: MEDROL DOSEPAK (DAY 2 HS) PO SCH (22:00)
[2018-04-09] MEDS ORDERED: MEDROL DOSEPAK (DAY 3) PO SCH (08:00)
[2018-04-10] MEDS ORDERED: MEDROL DOSEPAK (DAY 4) PO SCH (08:00)
[2018-04-11] MEDS ORDERED: MEDROL DOSEPAK (DAY 5) PO SCH (08:00)
[2018-04-12] MEDS ORDERED: MEDROL DOSEPAK (DAY 6) PO SCH (08:00)
== END 2018-04-08 17:10 | disposition home or self-care (01) | DRG 202 ==
LOC: ER 09:06 → EH 12:00 → OBSVTOIN 12:34 → 3S 13:17 → 2N 04-05 17:25
PROVIDERS: ADMIT Family Medicine; ATTEND Family Medicine
PROC: 5A09457 Assistance with Respiratory Ventilation, 24-96 Consecutive Hours, Continuous Positive Airway Pressure (ICD-10-PCS; principal; 2018-04-04)
PROC: 3E0F73Z Introduction of Anti-inflammatory into Respiratory Tract, Via Natural or Artificial Opening (ICD-10-PCS; 2018-04-04)
DX: J45.52 Severe persistent asthma with status asthmaticus (principal); J96.01 Acute respiratory failure with hypoxia; D72.1 Eosinophilia; F17.210 Nicotine dependence, cigarettes, uncomplicated; Z79.899 Other long term (current) drug therapy; Z91.14 Patient's other noncompliance with medication regimen; Z91.013 Allergy to seafood; Z88.8 Allergy status to other drugs, medicaments and biological substances
CPT/HCPCS: 36415; 71045; 71260; 80053; 82272; 82803; 83735; 84100; 84439; 84443; 85025; 94640; 94644; 94660; 94799; 96374; 96375; 96376; 99291; J0456; J0696; J1200; J1644; J2920; J2930; J3475; J7030; J7060; J7509; J7620